=== PATIENT | male | born 2005 | race Caucasian/White ===

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

== ENCOUNTER 2024-03-27 14:18 | Outpatient (AMB) | payer OTHER, SELFPAY ==
--- NOTE | 2024-03-27 14:25 | A.OFFPC_ITS ---
Vital Signs 03/27/24 14:37 Height 5 ft 5.94 in Weight 187 lb 6 oz BMI 30.3 BP 120/78 Blood Pressure Location Lt brachial Position Sitting Respiration 16 Pulse 92 Pulse Source Pulse Oximeter Temp 98.1 F Temp Source Oral Pulse Oximetry (%) 99 Oxygen Delivery Method Room Air Intake Visit Reasons: Establish care Intake Note: New patient visit Family Literacy Coordinator Required: No Allergies cat hair Allergy (Unknown, Uncoded 03/27/24 14:29) unkknown dog epithelium Allergy (Unknown, Uncoded 03/27/24 14:29) Unknown dust mite Allergy (Unknown, Uncoded 03/27/24 14:29) Unknown horse epithelium Allergy (Unknown, Uncoded 03/27/24 14:29) Unknown Medication List - Last Reconciled 03/27/24 by Rudy Perez MD No Known Home Meds Tobacco use date assessed: 03/27/24 Dental Screening Dental Screen Date: 03/27/24 Did you have a dental visit in the last 12 months?: No Did you have a dental problem in the last 6 months where you did not have access to dental care?: No Was dental information given to patient?: Patient has dentist HPI Establish care HPI Details New Patient? ?? Prior PCP:?[facility] Last office visit/CPE:?1 yr ago Acute issue(s):? Was dx'd w/ Anxiety & depression. Mom has ?Bipolar. and GF +Bipolar. Had therapist during Covid pandemic. ?? PMHx:? Anxiety/depression. Asthma and allergies. SurgHx:?None FHx:? Mom: Asthma, Anx/Depression, ?Bipolar. Dad: Anxiety, Depression, Asthma, Gastric ulcer. SocHx:? Nonsmoker - Vaapes, EtOH: Occassional 5-6. MJ daily. No drugs. 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 1. Little interest or pleasure in doing things: several days 2. Feeling down, depressed, or hopeless: several days 3. Trouble falling or staying asleep, or sleeping too much: nearly every day 4. Feeling tired or having little energy: several days 5. Poor appetite or overeating: more than half the days 6. Feeling bad about yourself - or that you are a failure or have let yourself or your family down: more than half the days 7. Trouble concentrating on things, such as reading the newspaper or watching television: several days 8. Moving or speaking so slowly that other people could have noticed. Or the opposite - being so fidgety or restless that you have been moving around a lot more than usual: not at all 9. Thoughts that you would be better off or of hurting yourself in some way: several days Total score: 12 Depression Screening Interpretation: Positive Depression Screening Done: Yes 63892 - PHQ-9 Billing: Yes Source: Developed by Drs. Jeyson Queen, Uzma Mitchell, Howard Ashby and colleagues, with an educational ivania from [employer]. Thrive Questionnaire Date Thrive assessed: 03/27/24 I am a: Patient What is your living situation today?: I have a steady place to live Within the past 12 months, did the food you bought not last and you didn't have the money to get more?: Never true Within the past 12 months, did you worry whether your food would run out before you got money to buy more?: Never true Do you have trouble paying for medicines?: No Do you have trouble getting transportation to medical appointments?: Yes Do you have trouble paying your heating and electricity bill?: No Do you have trouble taking care of your child, family member or friend?: No Do you have trouble with day-to-day activities such as bathing, preparing meals, shopping, managing finances, etc.?: Yes Are you currently unemployed and looking for a job?: No Are you interested in more education?: Yes Please select the resources that you would like help with: Transportation, Daily support and Education Currently or been in a relationship where the following occur: No concerns reported THRIVE Score: 1 AUDIT C Alcohol Use Questionnaire (AUDIT-C) 1. How often do you have a drink containing alcohol?: Monthly or less 2. How many drinks containing alcohol do you have on a typical day when you are drinking?: 5 or 6 3. How often do you have six or more drinks on one occasion?: Never Total Score: 3 JESSICA-7 AMB Questionnaire JESSICA-7 Date JESSICA - 7 assessed: 03/27/24 Feeling nervous, anxious, or on edge: 1 = Several days Not being able to stop or control worryin = More than half the days Worrying too much about different things: 1 = Several days Trouble relaxin = Several days Being so restless that it is hard to sit still: 1 = Several days Becoming easily annoyed or irritable: 2 = More than half the days Feeling afraid as if something awful might happen: 0 = Not at all Total JESSICA-7 score (0-4 normal; 5-9 mild; 10-14 moderate; 15-21 severe): 8 Source: Developed by Drs. Jeyson Queen, Uzma Mitchell, Howard Ashby and colleagues, with an educational ivania from [employer]. JESSICA-7 Assessment Billing JESSICA-7 Assessment Tool: JESSICA-7 Assessment 93067 Review of Systems Const Denies chills, Denies fatigue, Denies fever(s), Denies headache(s) and Denies weakness ENT Denies dizziness and Denies headache(s) Card Denies chest pain, Denies lightheadedness, Denies dyspnea and Denies other (Palpitations) Resp Denies cough, Denies dyspnea, Denies wheezing and Denies other ( shortness of breath) Musc Denies numbness and Denies tingling Neuro Denies dizziness, Denies headache(s), Denies numbness, Denies tingling, Denies paresthesias and Denies weakness Psych Denies anxiety and Denies depression Endo Denies fatigue Aller/Immun Denies wheezing Physical exam (Primary Care) Vital Signs: Last Vital Signs Temp 98.1 F 03/27/24 14:37 Pulse 92 03/27/24 14:37 Resp 16 03/27/24 14:37 BP 120/78 03/27/24 14:37 Pulse Ox 99 03/27/24 14:37 Oxygen Delivery Method Room Air 03/27/24 14:37 BMI result Body Mass Index 30.3 Tobacco/Smoking Status: Tobacco use Status Tobacco use date assessed 03/27/24 03/27/24 14:36 Patient Tobacco Use Status Never used Tobacco 03/27/24 14:36 e-Cigarette/Vaping Use Currently Using 03/27/24 14:36 PHQ-9: PHQ-9 Score PHQ-9: Total score 12 03/27/24 14:54 Depression Screening Interpretation: Positive Thrive Assessment: Date of Thrive Assessment Date Thrive assessed 03/27/24 03/27/24 14:43 Currently or been in a relationship where the following occur: No concerns reported Const General: no acute distress and well developed Nutritional Appearance: well nourished Orientation/consciousness: patient oriented x3 HENMT Head: Yes normocephalic and Yes atraumatic Eyes General: appearance normal, both eyes and all related structures Pupils: Equal, round and reactive pupils present EOM: EOMs intact bilaterally Resp Other: Scattered, faint wheezes Effort & Inspection: normal respiratory effort Auscultation: clear to auscultation bilaterally Cardio Rate: regular rate Rhythm: regular rhythm Heart sounds: S1 normal heart sound present, S2 normal heart sound present, no gallops, no murmurs and no rubs Neuro General: patient oriented x3 and gait normal Cranial nerves: Yes Equal, round and reactive pupils present Psych Affect: normal affect Assessment and Plan Assessment & Plan (1) Depression with anxiety: Code(s): F41.8 - Other specified anxiety disorders Plan: History?of?anxiety?and?depression. Screening?for?anxiety?depression?is?elevated. Patient?says?that?he?is?actually?doing?fairly?well?and?better?t ly?he?usually?does. Declines?referral?to?a?therapist?at?this?time Declines?medications?at?this?time I?did?let?him?know?that?if?he?would?like?to?initiate?therapy?or?discuss?medicati ons?at?any?time?he?can?let?me?know. (2) Mild persistent asthma without complication: Code(s): J45.30 - Mild persistent asthma, uncomplicated Plan: Continue?inhaled?medications Encouraged?him?to?discontinue?marijuana?use?or?switch?to?alternate?route?of?juan a moreno (3) Seasonal allergic rhinitis due to pollen: Code(s): J30.1 - Allergic rhinitis due to pollen Plan: Can?continue?allergy?medications (4) Sleep apnea: Code(s): G47.30 - Sleep apnea, unspecified Plan: Patient?says?he?has?been?told?by?his?father?that?he?has?had?apneic?events Referred?to?Sleep?Medicine (5) Laboratory exam ordered as part of routine general medical examination: Code(s): Z00.00 - Encounter for general adult medical examination without abnormal findings Plan: Check?lab Orders: Orders Comprehensive [place]. Panel Fast Today Z00.00 - Encounter for general adult medical examination without abnormal findings Lipid Panel Today Z00.00 - Encounter for general adult medical examination without abnormal findings TSH reflex Free T4 Today Z00.00 - Encounter for general adult medical examination without abnormal findings Free T4 (Free Thyroxine) Today E03.9 - Hypothyroidism, unspecified Hepatitis B,C Profile Today Z11.3 - Encounter for screening for infections with a predominantly sexual mode of transmission Syphilis Screen Today Z11.3 - Encounter for screening for infections with a predominantly sexual mode of transmission Microalbumin, Random (w Creat) Today I10 - Essential (primary) hypertension UA and rflx microscopic Today Z00.00 - Encounter for general adult medical examination without abnormal findings HIV Ab/Ag Today Z11.3 - Encounter for screening for infections with a predominantly sexual mode of transmission Referrals Sleep Medicine Referral G47.30 - Sleep apnea, unspecified Medications: New albuterol sulfate 90 mcg/actuation (Ventolin HFA) 2 puffs inhalation Q4-6H 30 days PRN 8.5 grams 4RF shortness of breath or wheezing beclomethasone dipropionate 80 mcg/actuation (Qvar RediHaler) 1 inh inhalation Q12H 30 days 10.6 grams 2RF Coding Level of Care Code New Pt Level 3 (38044) Diagnoses Depression with anxiety F41.8 Mild persistent asthma without complication J45.30 Seasonal allergic rhinitis due to pollen J30.1 Sleep apnea G47.30 Laboratory exam ordered as part of routine general medical examination Z00.00 Additional Codes JESSICA-7 Assessment Billing - JESSICA-7 Assessment Tool: JESSICA-7 Assessment 10921 ([id number])
[2024-03-27 14:37] VITALS: BP 120/78; PULSE 92; RESP 16; TEMP 36.7; O2SAT 99; BMI 30.3
== END 2024-03-27 15:18 | disposition home or self-care (01) ==
PROVIDERS: PCP Pediatrics; Visit Provider Family Medicine
DX: F41.8 Other specified anxiety disorders (principal); J45.30 Mild persistent asthma, uncomplicated; J30.1 Allergic rhinitis due to pollen; G47.30 Sleep apnea, unspecified; Z00.00 Encounter for general adult medical examination without abnormal findings
CPT/HCPCS: 96127; 99203

== ENCOUNTER 2025-04-16 11:48 | Outpatient (AMB) | payer OTHER, SELFPAY ==
--- NOTE | 2025-04-16 12:29 | A.OFFPC_ITS ---
Vital Signs 04/16/25 12:34 Height 5 ft 8 in Weight 231 lb BMI 35.1 BP 122/86 Blood Pressure Location Rt brachial Position Sitting Respiration 15 Pulse 89 Pulse Source Pulse Oximeter Temp 97.4 F Temp Source Temporal Artery Scan Pulse Oximetry (%) 97 Oxygen Delivery Method Room Air Intake Visit Reasons: f/u asthma Intake Note: Rashard presents in the office today for a follow up to his asthma. Allergies cat hair Allergy (Unknown, Uncoded 04/16/25 12:31) unkknown dog epithelium Allergy (Unknown, Uncoded 04/16/25 12:31) Unknown dust mite Allergy (Unknown, Uncoded 04/16/25 12:31) Unknown horse epithelium Allergy (Unknown, Uncoded 04/16/25 12:31) Unknown Tobacco use date assessed: 04/16/25 Dental Screening Dental Screen Date: 04/16/25 Did you have a dental visit in the last 12 months?: No Did you have a dental problem in the last 6 months where you did not have access to dental care?: No Was dental information given to patient?: Patient declined HPI f/u asthma HPI Details 19 y/o male presents today with complain ts of asthma. He is on Ventolin. Does vape socially. Pt reports symptoms of sleep apnea. They note witnessed apneic events while sleeping and snoring. Also notes hypersomnia. [facility] Medical History (Updated 03/27/24 @ 15:06 by Rudy Perez MD) Mild persistent asthma without complication Seasonal allergic rhinitis due to pollen Depression Anxiety Family History (Updated 04/16/25 @ 12:33 by Nataliia Lindsey CMA) Father FH: mental illness Depression with anxiety Substance abuse Alcoholism Mother Depression with anxiety Paternal Grandfather Substance abuse Alcoholism Maternal Grandfather Substance abuse Alcoholism Social History (Updated 04/16/25 @ 12:34 by Nataliia Lindsey CMA) Housing: House Alcohol intake: current Patient Tobacco Use Status: Never used Tobacco e-Cigarette/Vaping Use: Currently Using Second Hand Smoke Exposure: No Substance Use Type: Marijuana service: No Current occupational status: employed 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 1. Little interest or pleasure in doing things: several days 2. Feeling down, depressed, or hopeless: several days 3. Trouble falling or staying asleep, or sleeping too much: several days 4. Feeling tired or having little energy: several days 5. Poor appetite or overeating: several days 6. Feeling bad about yourself - or that you are a failure or have let yourself or your family down: several days 7. Trouble concentrating on things, such as reading the newspaper or watching television: several days 8. Moving or speaking so slowly that other people could have noticed. Or the o pposite - being so fidgety or restless that you have been moving around a lot more than usual: several days 9. Thoughts that you would be better off or of hurting yourself in some way: not at all Total score: 8 Source: Developed by Drs. Jeyson Queen, Uzma Mitchell, Howard Ashby and colleagues, with an educational ivania from [email or web address] Thrive Questionnaire Date Thrive assessed: 04/13/25 I am a: Patient What is your living situation today?: I have a place to live, but I am worried about losing it in the future Within the past 12 months, did the food you bought not last and you didn't have the money to get more?: Sometimes True Within the past 12 months, did you worry whether your food would run out before you got money to buy more?: Sometimes True Do you have trouble paying for medicines?: Yes Do you have trouble getting transportation to medical appointments?: No Do you have trouble paying your heating and electricity bill?: No Do you have trouble taking care of your child, family member or friend?: I choose not to answer this question Do you have trouble with day-to-day activities such as bathing, preparing meals, shopping, managing finances, etc.?: No Are you currently unemployed and looking for a job?: Yes Are you interested in more education?: Yes Currently or been in a relationship where the following occur: No concerns reported THRIVE Score: 3 JESSICA-7 AMB Questionnaire JESSICA-7 Date JESSICA - 7 assessed: 03/27/24 Source: Developed by Drs. Jeyson Queen, Uzma Mitchell, Howard Ashby and colleagues, with an educational ivania from [email or web address] Review of Systems Const Denies chills, Denies fatigue, Denies fever(s), Denies headache(s) and Denies weakness ENT Denies dizziness and Denies headache(s) Card Denies dyspnea Resp Denies cough, Denies dyspnea, Denies wheezing and Denies other (shortness of breath) Musc Denies numbness and Denies tingling Neuro Denies dizziness, Denies headache(s), Denies numbness, Denies tingling and Denies weakness Psych Denies anxiety and Denies depression Endo Denies fatigue Aller/Immun Denies wheezing Physical exam (Primary Care) Vital Signs: Last Vital Signs Temp 97.4 F 04/16/25 12:34 Pulse 89 04/16/25 12:34 Resp 15 04/16/25 12:34 BP 122/86 04/16/25 12:34 Pulse Ox 97 04/16/25 12:34 Oxygen Delivery Method Room Air 04/16/25 12:34 BMI result Body Mass Index 35.1 Tobacco/Smoking Status: Tobacco use Status Tobacco use date assessed 04/16/25 04/16/25 12:38 Patient Tobacco Use Status Never used Tobacco 04/16/25 12:34 e-Cigarette/Vaping Use Currently Using 04/16/25 12:34 PHQ-9: PHQ-9 Score PHQ-9: Total score 8 04/16/25 13:07 Thrive Assessment: Date of Thrive Assessment Date Thrive assessed 04/13/25 04/16/25 12:30 Currently or been in a relationship where the following occur: No concerns reported Const General: well developed; No acute distress Nutritional Appearance: well nourished Orientation/consciousness: patient oriented x3 [facility] Head: Yes normocephalic and Yes atraumatic Eyes General: appearance normal, both eyes and all related structures Pupils: Equal, round and reactive pupils present EOM: EOMs intact bilaterally Resp Effort & Inspection: normal respiratory effort Auscultation: clear to auscultation bilaterally Cardio Rate: regular rate Rhythm: regular rhythm Heart sounds: S1 normal heart sound present, S2 normal heart sound present, no gallops, no murmurs and no rubs Neuro General: patient oriented x3 and gait normal Cranial nerves: Yes Equal, round and reactive pupils present Psych Affect: normal affect Coding Level of Care Code Est Pt Level 4 (72760) Diagnoses Mild persistent asthma without complication J45.30 Sleep apnea G47.30 Seasonal allergic rhinitis due to pollen J30.1 Assessment & Plan Assessment & Plan (1) Mild persistent asthma without complication: Code(s): J45.30 - Mild persistent asthma, uncomplicated Category: Medical Plan: Continue albuterol Refilled QVAR Patient still vaping and using MJ intermittently with friends Encouraged only fresh air in his lungs Will continue to monitor (2) Sleep apnea: Code(s): G47.30 - Sleep apnea, unspecified Category: Medical Plan: Family notes snoring and gasping while sleeping also some witnessed apnea and patient has significant daytime sleepiness Referred to Sleep Medicine (3) Seasonal allergic rhinitis due to pollen: Code(s): J30.1 - Allergic rhinitis due to pollen Category: Medical Plan: Can use OTC antihistamine such as Zyrtec Orders: Orders Comprehensive [place]. Panel Fast Today Z00.00 - Encounter for general adult medical examination without abnormal findings Complete Blood Count Auto Diff Today Z00.00 - Encounter for general adult medical examination without abnormal findings UA CC w/rflx Micro + Cult Today Z00.00 - Encounter for general adult medical examination without abnormal findings Lipid Panel Today Z00.00 - Encounter for general adult medical examination without abnormal findings Microalbumin, Random (w Creat) Today I10 - Essential (primary) hypertension TSH reflex Free T4 Today Z00.00 - Encounter for general adult medical examination without abnormal findings Referrals Sleep Medicine Referral G47.30 - Sleep apnea, unspecified Medications: New beclomethasone dipropionate 80 mcg/actuation (Qvar RediHaler) administer with spacer 1 inh inhalation Q12H 10.6 grams 6RF 30 days
[2025-04-16 12:34] VITALS: BP 122/86; PULSE 89; RESP 15; TEMP 36.3; O2SAT 97; BMI 35.1
--- OUTSIDE RECORDS SUMMARY | 2025-04-16 13:10 | XMS_ITS | Encounter Summary ---
Author Organization [facility] Address [address] [place] [address] Phone Care Team Providers Care Traffic Workforce Representative Name Role Phone Kianna Bowen MD Primary Care Provider [phone] Encounter Details Date Type Department Care Team (Late st Contact Info) Description 11/25/2011 Documentation [facility] [place] [address] [place] [address] Family Medicine, Physician [address] [place], [place] [phone] Social History Tobacco Use Types Packs/Day Years Used Date Smoking Tobacco: Never Assessed Sex and Gender Information Value Date Recorded Sex Assigned at Male 05/09/2019 2:56 PM EDT Legal Sex Male 2:51 PM EDT Gender Identity Male 05/09/2019 2:56 PM EDT Sexual Orientation Bisexual 05/09/2019 2: 56 PM EDT documented as of this encounter Plan of Treatment Not on file documented as of this encounter Visit Diagnoses Not on filedocumented in this encounter Care Teams Traffic Workforce Representative Relationship Specialty Start Date End Date Kianna Bowen MD [address] [place] [id number] PCP - General Pediatrics 02/10/24 documented as of this encounter
--- OUTSIDE RECORDS SUMMARY | 2025-04-16 13:10 | XMS_ITS | Encounter Summary ---
Author Organization [facility] Address [address] [place] [address] Phone Care Team Providers Care Athletics Director Name Role Phone iKanna Bowen MD Primary Care Provider [phone] Encounter Details Date Type Department Care Team (Late st Contact Info) Description 12/05/2009 Documentation [facility] [place] Family Medicine [address] [place] [address] Family Medicine, Physician [address] [place], [place] [phone] Social History Tobacco Use Types Packs/Day Years [...] on filedocumented in this encounter Care Teams Athletics Director Relationship Specialty Start Date End Date Kianna Bowen MD [address] [place] [phone] PCP - General Pediatrics 02/10/24 documented as of this encounter
--- OUTSIDE RECORDS SUMMARY | 2025-04-16 13:10 | XMS_ITS | Encounter Summary ---
Author Organization [facility] Address [address] [place] [address] Phone Care Team Providers Care Fifth Grade Teacher Name Role Phone Esthela Mcneil MD Primary Care Provider [phone] Encounter Details Date Type Department Care Team (Late st Contact Info) Description 05/13/2022 Procedure Pass [place] Admitting Dept - Virtual Department [address] [place] [address] Social History Tobacco Use Types Packs/Day Years Used Date Smoking Tobacco: Never Smokeless Tobacco: Never Alcohol Use Standard Drinks/Week Comments Never 0 (1 standard drink = 0.6 oz pur e alcohol) Sex and Gender Information Value Date Recorded Sex Assigned at Not on file Legal Sex Male 8:43 PM EDT Gender Identity Not on file Sexual Orientation Not on file documented as of this encounter Plan of Treatment Not on file documented as of this encounter Visit Diagnoses Not on filedocumented in this encounter Care Teams Fifth Grade Teacher Relationship Specialty Start Date End Date Esthela Mcneil MD [email or web address] PCP - General Pediatrics 05/04/22 documented as of this encounter Additional Source Comments The information contained in this document represents components of the legal health record. It is not the complete legal health record.[facility]
--- OUTSIDE RECORDS SUMMARY | 2025-04-16 13:10 | XMS_ITS | Encounter Summary ---
Author Organization [facility] Address [address] [place] [address] Phone Care Team Providers Care Dead Mail Checker Name Role Phone Kianna Bowen MD Primary Care Provider [phone] Encounter Details Date Type Department Care Team (Late st Contact Info) Description 09/06/2012 Documentation [facility] [place] Family Medicine [address] [place] [address] Family Medicine, Physician [address] [place], [place] [phone] Social History Tobacco Use Types Packs/Day Years [...] on filedocumented in this encounter Care Teams Dead Mail Checker Relationship Specialty Start Date End Date Kianna Bowen MD [address] [place] [id number] PCP - General Pediatrics 02/10/24 documented as of this encounter
--- OUTSIDE RECORDS SUMMARY | 2025-04-16 13:10 | XMS_ITS | Encounter Summary ---
Author Organization [facility] Address [address] [place] [address] Phone Care Team Providers Care Statistics Intern Name Role Phone Kianna Bowen MD Primary Care Provider [phone] Encounter Details Date Type Department Care Team (Late st Contact Info) Description 12/29/2009 Documentation [facility] [place] Family Medicine [address] [place] [address] Family Medicine, Physician [address] [place], [place] [phone] Social History Tobacco Use Types Packs/Day Years [...] on filedocumented in this encounter Care Teams Statistics Intern Relationship Specialty Start Date End Date Kianna Bowen MD [address] [place] [id number] PCP - General Pediatrics 02/10/24 documented as of this encounter
--- OUTSIDE RECORDS SUMMARY | 2025-04-16 13:11 | XMS_ITS | Clinical Summary ---
Author Organization [facility] Address [address] [place] [address] Care Team Providers Care Talent Development Consultant Name Role Phone Esthela Mcneil MD Primary Care Provider [phone] Source Comments Please note that some or all of the patient's information could have additional privacy protections. State laws allow health care providers to render certain types of treatment to minors without parental consent. Please do not assume that this information can be shared solely by obtaining just the consent of the patient's parent/guardian. Please determine if all or part of the patient's care was rendered without parent/guardian involvement. And, if so, obtain the minor's consent prior to disclosure.[facility] Medications No known medications Active Problems No known active problems Family History Medical History Relation Name Comments Ulcers Father Celiac disease Mother Relation Name Status Comments Father Mother Social History Tobacco Use Types Packs/Day Years Used Date Smoking Tobacco: Never Smokeless Tobacco: Never Alcohol Use Standard Drinks/Week Comments Never 0 (1 standard drink = 0.6 oz pur e alcohol) Other Needs Answer Date Recorded Anything else about your child you'd like help w ith? Not on file 04/01/2023 Share good news about positive changes: Not on f ile 04/01/2023 Sex and Gender Information Value Date Recorded Sex Assigned at Not on file Legal Sex Male 8:53 AM EDT Gender Identity Not on file Sexual Orientation Not on file Last Filed Vital Signs Vital Sign Reading Time Taken Comments Blood Pressure 132/81 01/19/2022 1:35 PM EDT Pulse 82 01/19/2022 1:35 PM EDT Temperature - - Respiratory Rate - - Oxygen Saturation - - Inhaled Oxygen Concentration - - Weight 96.8 kg (213 lb 6.5 oz) 01/19/2022 1:35 P M EDT Height 169.5 cm (5' 6.73 ) 01/19/2022 1:35 PM ED T Body Mass Index 33.69 01/19/2022 1:35 PM EDT Plan of Treatment Health Maintenance Due Date Last Done Comments DTaP/TDAP/TD VACCINES (1 - Tdap) 2011 ADOLESCENT HIV SCREENING 2017 COVID-19 Vaccine (1 - 2023-2 5 season) 2025 INFLUENZA (#1) 2025 NIRSEVIMAB VACCINES UNDER 8 MONTHS Aged Out No longer eligible based on patient's age to complete this topic Insurance BLUE [employer]OSS Care Teams Talent Development Consultant Relationship Specialty Start Date End Date Esthela Mcneil MD [address] [place] [address] HIREN HOWARD [id number] PCP - General General Pediatrics 12/01/21
--- OUTSIDE RECORDS SUMMARY | 2025-04-16 13:11 | XMS_ITS | Encounter Summary ---
Author Organization [facility] Address [address] [place] [id number] Phone Care Team Providers Care Data Recovery Planner Name Role Phone Kianna Bowen MD Primary Care Provider [phone] Encounter Details Date Type Department Care Team (Late st Contact Info) Description 05/12/2010 Documentation [facility] Family Medicine [address] [place] [address] Family Medicine, Physician [address] [place], [place] [id number] Social History Tobacco Use Types Packs/Day Years [...] on filedocumented in this encounter Care Teams Data Recovery Planner Relationship Specialty Start Date End Date Kianna Bowen MD [address] [place] [id number] PCP - General Pediatrics 02/10/24 documented as of this encounter
--- OUTSIDE RECORDS SUMMARY | 2025-04-16 13:11 | XMS_ITS | Clinical Summary ---
Author Organization [facility] Address [address] [facility] [address] [place] [phone] Phone Care Team Providers Care Monitor Worker Name Role Phone Esthela Mcneil MD Primary Care Provider [phone] Allergies No known active allergies Medications beclomethasone (QVAR) 40 mcg/actuation inhaler Inhale 2 puffs into the lungs 2 (two) times a day. Active cetirizine (ZYRTEC) 10 MG tablet Take 10 mg by mouth daily. Active acetaminophen (TYLENOL) 500 MG tablet Take 500 mg by mouth every 6 (six) hours as needed for pain (specific location in comments). Active albuterol 90 mcg/actuation inhaler Inhale 2 puffs into the lungs every 6 (six) hours as needed for wheezing. Active Active Problems No known active problems Social History Tobacco Use Types Packs/Day Years Used Date Smoking Tobacco: Never Smokeless Tobacco: Never Alcohol Use Standard Drinks/Week Comments Never 0 (1 standard drink = 0.6 oz pur e alcohol) Education Answer Date Recorded Are you interested in more education? Not on brigido e 11/12/2022 Are you concerned about learning? Not on file 11/12/2022 No 11/12/2022 No 11/12/2022 Digital Access Answer Date Recorded No 12/13/2022 No 12/13/2022 No 12/13/2022 Reliable internet access at home? Not on file 12/13/2022 Device with a working camera? Not on file Sex and Gender Information Value Date Recorded Sex Assigned at Not on file Legal Sex Male 8:43 PM EDT Gender Identity Not on file Sexual Orientation Not on file Last Filed Vital Signs Vital Sign Reading Time Taken Comments Blood Pressure - - Pulse - - Temperature - - Respiratory Rate - - Oxygen Saturation - - Inhaled Oxygen Concentration - - Weight 98.9 kg (218 lb) 05/12/2022 10:00 PM EDT Height - - Body Mass Index - - Plan of Treatment Health Maintenance Due Date Last Done Comments DEVELOPMENTAL/BEHAVIORAL SCREENING (PHQ, PSC, or SWYC) 2007 DEPRESSION SCREENING 2016 SMOKING Hx and SMOKELESS TOBACCO SCREENING 2017 MENINGOCOCCAL VACCINES (B) (1 of 2 - Standard) 2020 ADOLESCENT UNIVERSAL LIPID SCREENING 2021 HEPATITIS C SCREENING 2022 HIV ONE-TIME SCREENING (18-65 YEARS) 2022 COVID-19 VACCINE ( season) 2024 07/17/2021, 11/12/2020, 10/22/2020 COMBINED DTaP,Tdap,Td (7 - Td or Tdap) 03/10/2026 03/10/2016, 08/28/2008, 02/14/2006, Additional history exists HIB VACCINES Completed 09/02/2006, 08/2004, 2004, Additional history exists PNEUMOCOCCAL VACCINES (0-49 years) Aged Out 09/02/2006, 02/16/2005, 2004, Additional history exists No longer eligible based on patient's age to complete this topic MMR VACCINES Completed 08/28/2008, 08/17/2005 VARICELLA VACCINES Completed 08/28/2008, 08/17/2005 HEPATITIS A VACCINES Completed 05/27/2014, 11/21/19 14 HPV VACCINES Completed 03/17/2017, 04/18, 03/10/2016 MENINGOCOCCAL VACCINES (ACWY) Completed 09/09/2020, 05/11/2016 Medical Devices Not on file Insurance [facility] P[facility] INDEM Care Teams Monitor Worker Relationship Specialty Start Date End Date Esthela Mcneil MD [email or web address] Information Development PCP - General Pediatrics 05/04/22 Additional Source Comments The information contained in this document represents components of the legal health record. It is not the complete legal health record.[facility]
--- OUTSIDE RECORDS SUMMARY | 2025-04-16 13:11 | XMS_ITS | Encounter Summary ---
Author Organization [facility] Address [address] [place] [address] Phone Care Team Providers Care Front End Developer Designer Name Role Phone Kianna Bowen MD Primary Care Provider [phone] Reason for Visit * Reason Comments Med Refill Encounter Details Date Type Department Care Team (Late st Contact Info) Description 06/06/2019 Refill [facility] [place] [address] [place] [address] Carlos Alberto Cortez MD [address] [place] [address] Mild persistent asthma without complication Social History Tobacco Use Types Packs/Day Years Used Date Smoking Tobacco: Never Smokeless Tobacco: Never Alcohol Use Standard Drinks/Week Comments No 0 (1 standard drink = 0.6 oz pur e alcohol) Hunger/Food Answer Date Recorded No 08/05/2018 Stable Housing Answer Date Recorded 0 08/05/2018 Transportation Concerns Answer Date Rec orded No 08/05/2018 Hazards in Home Answer Date Recorded No 08/05/2018 Financing Utilities Answer Date Recorde d No 08/05/2018 Safety at Home Answer Date Recorded No 08/05/2018 Outside Support Answer Date Recorded No 08/05/2018 Understanding Health Concerns Answer Da te Recorded No 08/05/2018 Financing Health Concerns Answer Date R ecorded No 08/05/2018 Missing School or Work Answer Date Wayne rded No 08/05/2018 Sex and Gender Information Value Date Recorded Sex Assigned at Male 05/09/2019 2:56 PM EDT Legal Sex Male 2:51 PM EDT Gender Identity Male 05/09/2019 2:56 PM EDT Sexual Orientation Bisexual 05/09/2019 2: 56 PM EDT documented as of this encounter Miscellaneous Notes * Telephone Encounter - Coty Terry LPN - 06/06/2019 10:31 AM EST Refill request for Q-Anish. Last PE 05/09/19/AIDAN documented in this encounter Plan of Treatment Not on file documented as of this encounter Visit Diagnoses Diagnosis Mild persistent asthma without complication documented in this encounter Care Teams Front End Developer Designer Relationship Specialty Start Date End Date Kianna Bowen MD [address] [place] [id number] PCP - General Pediatrics 02/10/24 documented as of this encounter
--- OUTSIDE RECORDS SUMMARY | 2025-04-16 13:11 | XMS_ITS | Clinical Summary ---
Author Organization [facility] Address [address] [place] [address] Phone Care Team Providers Care Precinct Police Sergeant Name Role Phone Kianna Bowen MD Primary Care Provider [phone] Allergies Active Allergy Reactions Criticality Noted Date Comments Cat Dander Dog Epithelium Dust Mite Extract Horse Epithelium Medications ibuprofen 200 MG tablet Take by mouth. 7 Active Cetirizine HCl (ZYRTEC ALLERGY) 10 MG capsuleIndication s:Seasonal allergic rhinitis due to pollen Take 1 capsule by mouth daily. 30 capsule 11 7 Active Albuterol Sulfate (ProAir RespiClick) 108 (90 Base) MCG/ACT aerosol powderIndications :Mild persistent asthma without complication Inhale 2 puffs every 4 (four) hours as needed (cough, wheeze, chest tightness). 1 each 3 Active Lidocaine HCl (Lidocaine Viscous HCl) 2 % solution TAKE 5 ML (MUCOUS MEMBRANE) 3 TIMES PER DAY (PAIN) 4 Active acetaminophen 500 MG tablet Take 500 mg by mouth every 6 hours as needed. Active albuterol HFA 108 (90 Base) MCG/ACT inhalerIndication s:Mild persistent asthma without complication Inhale 2 puffs every 4 (four) hours as needed for wheezing or shortness of breath. 1 Units 4 Active Qvar RediHaler 80 MCG/ACT aerosolIndication s:Mild persistent asthma without complication TAKE 2 PUFFS BY MOUTH TWICE A DAY 10.6 g 1 4 Active Active Problems Problem Noted Date Diagnosed Date COVID-19 04/16/2022 Overview (04/16/2022): New + Marijuana user 11/24/2021 Overview (11/24/2021): 11/2021- Weekly MJ use endorsed at [facility] in setting of mood disturbance. Counseling provided and referred to [facility] team to begin, consider transfer to [facility] program support PRN Assessment & Plan (11/24/2021 10:24 AM EDT): Continue to monitor, educate, support. Anxiety and depression 11/24/2021 Overview (11/24/2021): Rashard with moderate mixed mood disturbance, no current SI or self harm. Open to CBT support- refer to [facility] team ( WHO declined by pt today) Assessment & Plan (08/12/2022 4:45 PM EST): 08/12/22-Rashard reports overall improvement in mood. Trying to break things down into smaller tasks, fewer sad days. Trying to advocate for self and others around him. PLAN: 1. Follow up with [facility] one month 2. Patient goal is to report reduction in discomfort of symptoms from 01/24 to 10/25. 3. Behavioral Recommendations: a. Communicate feelings with parents when things change. b. Continue regular meditation and breathing practice. c. Break down goals into smaller tasks, take things one by one. Assessment & Plan (07/06/2022 3:54 PM EST): 07/06-Rashard reports overall improvement in mood. Trying to break things down into smaller tasks, fewer sad days. Trying to advocate for self and others around him. PLAN: 1. Follow up with [facility] mom to call and schedule. 2. Patient goal is to report reduction in discomfort of symptoms from 710 to 10/25. 3. Behavioral Recommendations: a. Mood tracking daily on a tiara (like [employer]) or chart b. Continue regular meditation and breathing practice. c. Break down driving into smaller tasks Assessment & Plan (06/08/2022 5:51 PM EST): 06/08-Rashard reports some improvement with mood and anxiety symptoms, feeling more energy, taking more steps forward on things he felt stuck with. PLAN: 1. Follow up with [facility] mom to call and schedule. 2. Patient goal is to report reduction in discomfort of symptoms from 01/24 to 10/25. 3. Behavioral Recommendations: a. Mood tracking daily on a tiara (like [employer]) or chart b. Continue regular meditation and breathing practice. c. Break down driving into smaller tasks (ask parents when can drive with them) Assessment & Plan (05/03/2022 5:55 PM EDT): Anxious about surgery with borderline elevated BP today. Suggest 50 mg dose Hydroxyzine prior to surgery- mother to discuss with oral surgeon. Assessment & Plan (04/22/2022 4:42 PM EDT): Patient with symptoms of depression (tiredness, sleeping more, feeling sad) and symptoms of anxiety (feeling nervous when alone, difficulty adjusting to unexpected things, difficulty falling asleep, overwhelmed by multiple things) in the context of family changes and school demands. Will continue to clarify diagnosis as pt. Reports some difficulty verbalizing symptoms. Patient will benefit from CBT strategies to improve mood and reduce anxiety. Patient is ready to address negative mood. Strengths include seems open and interested in change. PLAN: 1. Follow up with [facility] mom to call and schedule. 2. Patient goal is to report reduction in discomfort of symptoms from 01/24 to 10/25. 3. Behavioral Recommendations: a. Mood tracking daily on a tiara (like [employer]) or chart b. Continue regular meditation and breathing practice. c. Break down driving into smaller tasks (ask parents when can drive with them) Assessment & Plan (03/18/2022 4:56 PM EDT): Patient with symptoms of depression (tiredness, sleeping more, feeling sad) and symptoms of anxiety (feeling nervous when alone, difficulty adjusting to unexpected things, difficulty falling asleep, overwhelmed by multiple things) in the context of family changes and school demands. Will continue to clarify diagnosis as pt. Reports some difficulty verbalizing symptoms. Patient will benefit from CBT strategies to improve mood and reduce anxiety. Patient is ready to address negative mood. Strengths include seems open and interested in change. PLAN: 1. Follow up with [facility] one month (based on pt.'s schedule). 2. Patient goal is to report reduction in discomfort of symptoms from 01/24 to 10/25. 3. Behavioral Recommendations: a. Mood tracking daily on a tiara (like [employer]) or chart b. Continue regular meditation and breathing practice. c. Go to gym 1x/week (break down task-select time, ask dad for ride). Assessment & Plan (02/25/2022 10:33 AM EDT): Patient with symptoms of depression (tiredness, sleeping more, feeling sad) and symptoms of anxiety (feeling nervous when alone, difficulty adjusting to unexpected things, difficulty falling asleep, overwhelmed by multiple things) in the context of family changes and school demands. Will continue to clarify diagnosis as pt. Reports some difficulty verbalizing symptoms. Patient will benefit from CBT strategies to improve mood and reduce anxiety. Patient is ready to address negative mood. Strengths include seems open and interested in change. PLAN: 1. Follow up with [facility] pt. Will call, wants mom and dad to attend and needs to check availablity. 2. Patient goal is to report reduction in discomfort of symptoms from 01/24 to 10/25. 3. Behavioral Recommendations: a. Mood tracking daily on a tiara (like [employer]) or chart b. Continue regular meditation and breathing practice. c. Go to gym 1x/week (break down task-select time, ask dad for ride). Assessment & Plan (01/12/2022 10:52 AM EDT): Rashard now established with [facility], s/p 2 visits with monthly follow ups planned. Will explore possibility of more frequent visits, as he continues with moderate symptoms including passive SI, but declines med trial for now. Would prefer to add daily probiotics, MVI, Fish oil, Try to reduce simple carbs and increase plants , increase regular enjoyable physical activity, and add time with friends, volunteer work, etc. F/up in 1-2 months or sooner PRN worsening symptoms. Lower abdominal pain 07/29/2021 Overview (02/17/2022): 07/2021: 6 mos of crampy lower abdominal pain with intermittent NBNM diarrhea, never constipation. Suspect IBS, ? Lactose intolerance as no worrisome signs/sx of fever, blood or weight loss to suggest IBD, but must r/o Celiac- normal TTG/IGA, ESR 24, family requesting GI referral. 01/2022: [facility] GI consult/ Dr Villalobos- suspecting functional abdominal pain, but ordered repeat screening ESR+ and fecal calprotectin, IBGard for prn pain and RTC 04/2022 Assessment & Plan (11/24/2021 10:06 AM EDT): Family prefers re-routing of GI referral to [facility] for further evalution of ongoing IBS symptoms Seasonal allergic rhinitis due to pollen 019 Overview (07/31/2021): Flonase not helpful/well tolerated. RX Nasonex/Mometazone denied by insurance- suggest trial OTC Rhinocort(Budesonide) Assessment & Plan (07/29/2021 9:14 AM EST): Trial Nasonex Assessment & Plan (09/09/2020 2:22 PM EST): Daily cetirizine BMI (body mass index), pediatric, 95-99% for age 0309/26/2012 Overview (07/30/2021): 11/2020: HDL 42L but non-HDL WNL=84 07/2021: BMI 33.4/99%, with Hg A1c=5.7%, normal ALT Assessment & Plan (11/24/2021 10:05 AM EDT): Wonderful recent BMI stabilization with 3 lb wt loss over the past 4 months with improved nutrition. Encouraged continued healthy choices. Assessment & Plan (09/09/2020 2:20 PM EST): Dicussed idet and exercise. Assessment & Plan (03/17/2017 9:38 AM EDT): Discussed diet and excercise. Call if you are interested in the [employer] program for overweight kids. Mild persistent asthma without complication 11/15 Overview (09/15/2020): 04/2019-QVAR 2 puffs Once daily, albuterol only PRN with illnesses. Pro-Air Respiclick preferred by pt insurance. 08/2020: Trial off QVAR attempted with development of chest symptoms - Resumed at 80 x 2 BID Assessment & Plan (05/03/2022 5:53 PM EDT): Well controled with good compliance with daily QVAR. Suggest Flu shot soon. Assessment & Plan (11/24/2021 10:37 AM EDT): Doing well with QVAR 2 puffs daily and taking Cetirizine QHS- refill today. Flu shot and COVID vaccines UTD. AAP and albuterol Med auth form updated. Assessment & Plan (09/09/2020 2:22 PM EST): His asthma has beenvery quiet in the past year. Will do a trial without Qvar to see if he does well. He will call if asthma symptoms become more severe. Assessment & Plan (08/23/2019 8:57 AM EST): URI today, no exacerbation Assessment & Plan (03/17/2017 9:35 AM EDT): He has done very well the past two years with Flovent. Twice a day. 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 If he does well this coming year, consider stopping the Flovent Resolved Problems Problem Noted Date Diagnosed Date Resolved Date Fatigue 08/21/2021 11/24/2021 Overview (08/21/2021): with recent weight gain suggestive of deconditioning, but r/o thryroid disease, Celiac, anemia Sleep disturbance 03/12/2014 09/09/2019 Overview (09/09/2019): H/o melatonin use Nocturnal enuresis 08/18/2011 9 Assessment & Plan (03/17/2017 9:36 AM EDT): Improving, once a week now. Has DDAVP for travel Behavior problem in child 11/25/2009 Overview (05/08/2018): 12/30 - referred to [facility] by [facility]-based therpaist. Assessment & Plan (03/17/2017 9:36 AM EDT): In counseling in past. Father feels he is doing better with some attitude problems Immunizations Immunization Administration Dates Next Due COVID-19 Pfizer, bivalent, 12+ years 08/04/2022 DTaP / Hep B / IPV 02/16/2005,2004, 005 DTaP 5 08/28/2008,02/14/2006 H1N1 07/03/2009,06/04/2009 HPV Vaccine 9 Valent 03/17/2017,05/11/2016,03/10 Hep A, ped/adol 05/27/2014,11/20/2013 Hep B, ped/adol 02/12/2005 Hib (HbOC) 09/02/2006, 5,2004,10/13 IPV 08/28/2008 Influenza Split 07/06/2012,06/08/2011,08/25/2010 Influenza, injectable, quadrivalent 04/22/2015,1 07/21/2013 Influenza, injectable, quadr ivalent, preservative free 08/04/2022,07/17/2021,05/14/2020,05/09,05/08/2018,03/17/2017,03/10/2016 ,07/23/2013 Influenza, injectable, trivalent 009,06/24/2008,05/08/2007,07/08,06/29/2005,05/25/2005 MMR 08/28/2008,08/17/2005 Meningococcal Conj (Menactra) MCV4P 09/09/2020,1 Pneumococcal Conjugate 09/02/2006,2004,2004,10/13 Tdap 03/10/2016 Varicella 08/28/2008,08/17/2005 Family History Medical History Relation Name Comments No Known Problems Father Nathan No Known Problems Mother Paz Relation Name Status Comments Father Nathan Alive Father: Alive a nd well Maternal Grandfather Materna l grandfather: Bipolar disorder Mother Paz Alive Mother: celiac sp seasonal allergies Other Family history of Obesity, No family history of Seizure disorder, Family history of *Heart Disease, No family history of Migraines, Family history of Asthma, No family history of *CVA/Stroke, Family history of Cancer, breast, Family history of *Dental caries, No family history of Developmental dislocation of hip, Family history of Sudden /SD under age 55, Family history of Deafness, No family history of Hyperlipidemia, No family history of ADD/ADHD, Family history of Strabismus/amblyopia, Family history of Diabetes mellitus Social History Tobacco Use Types Packs/Day Years Used Date Smoking Tobacco: Never Smokeless Tobacco: Never Alcohol Use Standard Drinks/Week Comments Not Currently 0 (1 standard drink = 0.6 oz pure alcohol) Has tired on several occassions in the past year Hunger/Food Answer Date Recorded In the last 12 months, did y ou or your family ever eat less than you felt you should because there wasn't enough money for food? No 11/23/2021 Stable Housing Answer Date Recorded Are you worried that in the next 2 months you may not have stable housing? No 11/23/2021 Transportation Concerns Answer Date Rec orded In the last 12 months, have you or your family ever had to go without healthcare because you didn't have a way to get there? No 11/23/2021 Hazards in Home Answer Date Recorded Think about the place you li ve. Do you have problems with any of the following? Pests (mice or roaches), mold, no/not working smoke detectors, water leaks, no window guards. No 2021 Financing Utilities Answer Date Recorde d In the last 12 months, has t he electric, gas, oil, or water company threatened to shut off your services in your home? No 11/23/2021 Safety at Home Answer Date Recorded Are you or your family worried about feeling saf e in your home? No 11/23/2021 Outside Support Answer Date Recorded Do you feel that you need mo re support from other people or programs to help you care for yourself or your family? No 11/23/2021 Understanding Health Concerns Answer Da te Recorded Do you need help understandi ng your or your child's healthcare needs (diagnosis, medications, plan, etc.)? No 11/23/2021 Financing Health Concerns Answer Date R ecorded In the last 12 months, was t here a time when your child needed to see a doctor or get medications or supplies but could not because of cost? No 11/23/2021 Missing School or Work Answer Date Wayne rded Did you or your child miss s chool or work because of a health problem that could have been avoided? No 11/23/2021 Sex and Gender Information Value Date Recorded Sex Assigned at Male 05/09/2019 2:56 PM EDT Legal Sex Male 2:51 PM EDT Gender Identity Male 05/09/2019 2:56 PM EDT Sexual Orientation Bisexual 05/09/2019 2: 56 PM EDT Last Filed Vital Signs Vital Sign Reading Time Taken Comments Blood Pressure 123/86 05/03/2022 5:13 PM EDT Pulse 112 05/03/2022 5:13 PM EDT Temperature 36.5 C (97.7 F) 10/24/2023 3:16 PM EDT Respiratory Rate - - Oxygen Saturation 98% 05/03/2019 10: 21 AM EDT Inhaled Oxygen Concentration - - Weight 83.8 kg (184 lb 12.8 oz) 10/24/2023 3:16 PM EDT Height 168.5 cm (5' 6.34 ) 05/03/2022 5:13 PM ED T Body Mass Index - - Plan of Treatment Health Maintenance Due Date Last Done Comments Men B Vaccine (1 of 2 - Standard) 2020 Influenza Vaccines (#1) 2025 08/04/19 23, 07/17/2021, 05/14/2020, Additional history exists COVID-19 Vaccine (5 - 2024-2 6 season) 2025 08/04/2022, 07/17/2021, 11/12/2020, Additional history exists DTaP,Tdap,and Td Vaccines (7 - Td or Tdap) 03/10/2026 03/10/2016, 08/28/2008, 02/14/2006, Additional history exists Hepatitis B Vaccines Completed 02/16/2005, 02/12/2005, 2004, Additional history exists HIB Vaccines Completed 09/02/2006, 08/2004, 2004, Additional history exists Pneumococcal Vaccine Completed 09/02/2006, 02/16/2005, 2004, Additional history exists IPV Vaccines Completed 08/28/2008, 08/2004, 2004, Additional history exists MMR Vaccines Completed 08/28/2008, 08/17/2005 Varicella Vaccines Completed 08/28/2008, 08/17/2005 Hepatitis A Vaccines Completed 05/27/2014, 11/21/19 14 HPV Vaccines Completed 03/17/2017, 04/18, 03/10/2016 Meningococcal Vaccine Completed 09/09/2020, [facility] Care Teams Precinct Police Sergeant Relationship Specialty Start Date End Date Kianna Bowen MD [address] [place] [phone] PCP - General Pediatrics 02/10/24
--- OUTSIDE RECORDS SUMMARY | 2025-04-16 13:11 | XMS_ITS | Encounter Summary ---
Author Organization [facility] Address [address] [place] [address] Phone Care Team Providers Care Grinder Machine Setter Name Role Phone Kianna Bowen MD Primary Care Provider [phone] Encounter Details Date Type Department Care Team (Late st Contact Info) Description 05/26/2011 Documentation [facility] [place] Family Medicine [address] [place] [address] Family Medicine, Physician [address] [place], [place] [phone] Social History Tobacco Use Types Packs/Day Years [...] on filedocumented in this encounter Care Teams Grinder Machine Setter Relationship Specialty Start Date End Date Kianna Bowen MD [address] [place] [address] PCP - General Pediatrics 02/10/24 documented as of this encounter
--- OUTSIDE RECORDS SUMMARY | 2025-04-16 13:11 | XMS_ITS | Encounter Summary ---
Author Organization [facility] Address [address] [place] [address] Phone Care Team Providers Care Budget Specialist Name Role Phone Kianna Bowen MD Primary Care Provider [phone] Encounter Details Date Type Department Care Team (Late st Contact Info) Description 03/03/2017 Conversion Encounter [facility] [address] [place] [address] Social History Tobacco Use Types Packs/Day Years [...] on filedocumented in this encounter Care Teams Budget Specialist Relationship Specialty Start Date End Date Kianna Bowen MD [address] [place] [address] PCP - General Pediatrics 02/10/24 documented as of this encounter
== END 2025-04-16 13:22 | disposition home or self-care (01) ==
LOC: HO.HMCFM 11:49
PROVIDERS: PCP Family Medicine; Visit Provider Family Medicine
DX: J45.30 Mild persistent asthma, uncomplicated (principal); G47.30 Sleep apnea, unspecified; J30.1 Allergic rhinitis due to pollen

== ENCOUNTER → 2025-04-16 11:48 | Outpatient (BNVA) | payer OTHER, SELFPAY | PROVIDERS: PCP Family Medicine; Visit Provider Family Medicine | DX: J45.30 Mild persistent asthma, uncomplicated (principal); G47.30 Sleep apnea, unspecified; J30.1 Allergic rhinitis due to pollen; Z79.899 Other long term (current) drug therapy | CPT/HCPCS: 99212 ==

== ENCOUNTER 2025-05-14 08:15 | Outpatient (REF) | payer OTHER, SELFPAY ==
--- OUTSIDE RECORDS SUMMARY | 2025-05-14 08:45 | XMS_ITS | Encounter Summary ---
Author Organization [facility] Address [address] [place] [address] Phone Care Team Providers Care Domestic Maid Name Role Phone Kianna Bowen MD Primary Care Provider [phone] Encounter Details Date Type Department Care Team (Late st Contact Info) Description 11/25/2011 Documentation [facility] [place] [address] [place] [address] Family Medicine, Physician [address] [place], [place] [phone] Social History Tobacco Use Types Packs/Day Years [...] on filedocumented in this encounter Care Teams Domestic Maid Relationship Specialty Start Date End Date Kianna Bowen MD [address] [place] [phone] PCP - General Pediatrics 02/10/24 documented as of this encounter
--- OUTSIDE RECORDS SUMMARY | 2025-05-14 08:45 | XMS_ITS | Encounter Summary ---
Author Organization [facility] Address [address] [place] [address] Phone Care Team Providers Care Line Assembler Aircraft Name Role Phone Kianna Bowen MD Primary Care Provider [phone] Encounter Details Date Type Department Care Team (Late st Contact Info) Description 12/05/2009 Documentation [facility] [place] Family Medicine [address] [place] [address] Family Medicine, Physician [address] [place], [place] [phone] Social History Tobacco Use Types Packs/Day Years [...] on filedocumented in this encounter Care Teams Line Assembler Aircraft Relationship Specialty Start Date End Date Kianna Bowen MD [address] [place] [address] PCP - General Pediatrics 02/10/24 documented as of this encounter
--- OUTSIDE RECORDS SUMMARY | 2025-05-14 08:46 | XMS_ITS | Encounter Summary ---
Author Organization [facility] Address [address] [place] [address] Phone Care Team Providers Care Valve Inspector Name Role Phone Kianna Bowen MD Primary Care Provider [phone] Encounter Details Date Type Department Care Team (Late st Contact Info) Description 05/12/2010 Documentation [facility] [place] [address] [place] [address] Family Medicine, Physician [address] [place], [place] [phone] Social History Tobacco Use Types Packs/Day Years [...] on filedocumented in this encounter Care Teams Valve Inspector Relationship Specialty Start Date End Date Kianna Bowen MD [address] [place] [phone] PCP - General Pediatrics 02/10/24 documented as of this encounter
--- OUTSIDE RECORDS SUMMARY | 2025-05-14 08:46 | XMS_ITS | Encounter Summary ---
Author Organization [facility] Address [address] [place] [address] Phone Care Team Providers Care Agriscience Technology Instructor Name Role Phone Kianna Bowen MD Primary Care Provider [phone] Encounter Details Date Type Department Care Team (Late st Contact Info) Description 09/06/2012 Documentation [facility] [place] Family Medicine [address] [place] [address] Family Medicine, Physician [address] [place], [place] [phone] Social History Tobacco Use Types Packs/Day Years [...] on filedocumented in this encounter Care Teams Agriscience Technology Instructor Relationship Specialty Start Date End Date Kianna Bowen MD [address] [place] [address] PCP - General Pediatrics 02/10/24 documented as of this encounter
--- OUTSIDE RECORDS SUMMARY | 2025-05-14 08:46 | XMS_ITS | Clinical Summary ---
Author Organization [facility] Address [address] [place] [address] Care Team Providers Care Lab Specialist Name Role Phone Esthela Mcneil MD Primary Care Provider [phone] Source Comments Please note that some or [...] so, obtain the minor's consent prior to disclosure.[facility] Medications No known medications Active Problems [...] this topic Insurance [employer]UE [employer] Care Teams Lab Specialist Relationship Specialty Start Date End Date Esthela Mcneil MD [address] [place] [address] HIREN HOWARD [id number] PCP - General General Pediatrics 12/01/21
--- OUTSIDE RECORDS SUMMARY | 2025-05-14 08:46 | XMS_ITS | Encounter Summary ---
Author Organization [facility] Address [address] [place] [address] Phone Care Team Providers Care Inventory Control/Shipping Receiving Name Role Phone Kianna Bowen MD Primary Care Provider [phone] Encounter Details Date Type Department Care Team (Late st Contact Info) Description 12/29/2009 Documentation [facility] [place] [address] [place] [address] Family Medicine, Physician [address] [place], [place] [phone] Social History Tobacco Use Types Packs/Day Years [...] on filedocumented in this encounter Care Teams Inventory Control/Shipping Receiving Relationship Specialty Start Date End Date Kianna Bowen MD [address] [place] [phone] PCP - General Pediatrics 02/10/24 documented as of this encounter
--- OUTSIDE RECORDS SUMMARY | 2025-05-14 08:46 | XMS_ITS | Encounter Summary ---
Author Organization [facility] Address [address] [place] [address] Phone Care Team Providers Care Reporting Coordinator Name Role Phone Kianna Bowen MD Primary Care Provider Reason for Visit * Reason Comments Med Refill Encounter Details Date Type Department Care Team (Late st Contact Info) Description 06/06/2019 Refill [facility] [place] [address] [place] [address] Carlos Alberto Cortez MD 150 [place] [address] Mild persistent asthma without complication Social History [...] complication documented in this encounter Care Teams Reporting Coordinator Relationship Specialty Start Date End Date Kianna Bowen MD [address] [place] [address] PCP - General Pediatrics 02/10/24 documented as of this encounter
--- OUTSIDE RECORDS SUMMARY | 2025-05-14 08:46 | XMS_ITS | Encounter Summary ---
Author Organization [facility] Address [address] [place] [address] Phone Care Team Providers Care Sorter Packer Name Role Phone Esthela Mcneil MD Primary Care Provider [phone] Encounter Details Date Type Department Care Team (Late st Contact Info) Description 05/13/2022 Procedure Pass OR Admitting Dept - Virtual Department 30 [place] [address] Social History Tobacco Use Types Packs/Day Years [...] on filedocumented in this encounter Care Teams Sorter Packer Relationship Specialty Start Date End Date Esthela Mcneil MD [email or web address] PCP - General Pediatrics 05/04/22 documented as of this encounter Additional Source Comments The information contained in this document represents components of the legal health record. It is not the complete legal health record.[facility]
--- OUTSIDE RECORDS SUMMARY | 2025-05-14 08:46 | XMS_ITS | Clinical Summary ---
Author Organization [facility] Address [address] [place] [address] Phone Care Team Providers Care Hand Laster Name Role Phone Esthela Mcneil MD Primary Care Provider [phone] Allergies No known active allergies Medications beclomethasone [...] 2022 HIV ONE-TIME SCREENING (18-65 YEARS) 2022 INFLUENZA VACCINE (#1) 2025 , 05/14/2020, 05/09/2019, Additional history exists COVID-19 VACCINE ( season) 2025 07/17/2021, 11/12/2020, 10/22/2020 COMBINED DTaP,Tdap,Td (7 - [...] 05/11/2016 Medical Devices Not on file Insurance [facility] PPO [facility] PPO [facility] PPO IN[facility] INDEM Care Teams Hand Laster Relationship Specialty Start Date End Date Esthela Mcneil MD [email or web address] PCP - General Pediatrics 05/04/22 Additional Source Comments The information contained in this document represents components of the legal health record. It is not the complete legal health record.[facility]
--- OUTSIDE RECORDS SUMMARY | 2025-05-14 08:46 | XMS_ITS | Encounter Summary ---
Author Organization [facility] Address [address] [place] [address] Phone Care Team Providers Care Physical Design Engineer Name Role Phone Kianna Bowen MD Primary Care Provider [phone] Encounter Details Date Type Department Care Team (Late st Contact Info) Description 03/03/2017 Conversion Encounter [facility] [address] [place] [address] Social History Tobacco Use Types Packs/Day Years [...] on filedocumented in this encounter Care Teams Physical Design Engineer Relationship Specialty Start Date End Date Kianna Bowen MD 150 [place] [address] PCP - General Pediatrics 02/10/24 documented as of this encounter
--- OUTSIDE RECORDS SUMMARY | 2025-05-14 08:47 | XMS_ITS | Clinical Summary ---
Author Organization [facility] Address [address] [place] [address] Phone Care Team Providers Care Seasonal Greenery Bundler Name Role Phone Kianna Bowen MD Primary Care Provider [phone] Allergies Active Allergy Reactions Criticality Noted Date [...] (11/24/2021): 11/2021- Weekly MJ use endorsed at [facility] in setting of mood disturbance. Counseling provided and referred to [facility] team to begin, consider transfer to PC+ program support PRN Assessment & Plan (11/24/2021 10:24 AM EDT): Continue to monitor, educate, support. Anxiety and depression 11/24/2021 Overview (11/24/2021): Rashard with moderate mixed mood disturbance, no current SI or self harm. Open to CBT support- refer to [facility] team ( WHO declined by pt today) Assessment & Plan (08/12/2022 4:45 PM EST): 08/12/22-Rashard reports overall improvement in mood. Trying to break things down into smaller tasks, fewer sad days. Trying to advocate for self and others around him. PLAN: 1. Follow up with [facility] one month 2. Patient goal is to [...] around him. PLAN: 1. Follow up with [facility] mom to call and schedule. 2. Patient goal is to report reduction in discomfort of symptoms from 710 to 10/25. 3. Behavioral Recommendations: a. Mood tracking daily on a tiara (like raksul) or chart b. Continue regular meditation and breathing practice. c. Break down driving into smaller tasks Assessment & Plan (06/08/2022 5:51 PM EST): 06/08-Rashard reports some improvement with mood and anxiety symptoms, feeling more energy, taking more steps forward on things he felt stuck with. PLAN: 1. Follow up with [facility] mom to call and schedule. 2. Patient goal is to report reduction in discomfort of symptoms from 01/24 to 10/25. 3. Behavioral Recommendations: a. Mood tracking daily on a tiara (like [employer]) or chart b. Continue regular meditation and [...] in change. PLAN: 1. Follow up with [facility] mom to call and schedule. 2. Patient [...] in change. PLAN: 1. Follow up with [facility] one month (based on pt.'s schedule). 2. Patient goal is to report reduction in discomfort of symptoms from 01/24 to 10/25. 3. Behavioral Recommendations: a. Mood tracking daily on a tiara (like raksul) or chart b. Continue regular meditation and [...] in change. PLAN: 1. Follow up with [facility] pt. Will call, wants mom and dad to attend and needs to check availablity. 2. Patient goal is to report reduction in discomfort of symptoms from 01/24 to 10/25. 3. Behavioral Recommendations: a. Mood tracking daily on a tiara (like raksul) or chart b. Continue regular meditation and [...] ESR 24, family requesting GI referral. 01/2022: [facility] GI consult/ Dr Villalobos- suspecting functional abdominal pain, but ordered repeat screening ESR+ and fecal calprotectin, IBGard for prn pain and RTC 04/2022 Assessment & Plan (11/24/2021 10:06 AM EDT): Family prefers re-routing of GI referral to [facility] for further evalution of ongoing IBS [...] a day. He will follow up with build manager. If he does well this coming year, [...] 11/25/2009 Overview (05/08/2018): 12/30 - referred to [place] by [facility]-based therpaist. Assessment & Plan (03/17/2017 9:36 AM EDT): In counseling in past. Father feels he is doing better with some attitude problems Encounters Date Type Department Care Team Description 04/18/2025 Telephone [facility] [place] [address] [place] [address] Karen Taylor Flu clinic from Last 3 Months Immunizations Immunization Administration Dates Next Due COVID-19 [...] - Standard) 2020 Influenza Vaccines (#1) 2025 08/04/19, 07/17/2021, 05/14/2020, Additional history exists COVID-19 Vaccine (2024-2 6 season) 2025 08/04/2022, 07/17/2021, 11/12/2020, Additional [...] 03/17/2017, 04/18, 03/10/2016 Meningococcal Vaccine Completed 09/09/2020, 016 Care Teams Seasonal Greenery Bundler Relationship Specialty Start Date End Date Kianna Bowen MD [address] [place] [address] PCP - General Pediatrics 02/10/24
--- OUTSIDE RECORDS SUMMARY | 2025-05-14 08:47 | XMS_ITS | Encounter Summary ---
Author Organization [facility] Address [address] [place] [address] Phone Care Team Providers Care Bank Credit Card Collection Clerk Name Role Phone Kianna Bowen MD Primary Care Provider [phone] Encounter Details Date Type Department Care Team (Late st Contact Info) Description 05/26/2011 Documentation [facility] [place] Family Medicine [address] [place] [address] Family Medicine, Physician [address] [place], [place] [id number] Social History Tobacco Use Types Packs/Day Years [...] on filedocumented in this encounter Care Teams Bank Credit Card Collection Clerk Relationship Specialty Start Date End Date Kianna Bowen MD [address] [place] [address] PCP - General Pediatrics 02/10/24 documented as of this encounter
[2025-05-14 11:12] LABS: Appearance Urine Clear; Glucose Urine UA Negative (Negative); PH 6.0 (5.0-9.0); Specific Gravity - Urine 1.025 (1.005-1.025); UMIC TRIGGER UACC YES
[2025-05-14 11:27] LABS: MANUAL DIFF FLAG NO
[2025-05-14 11:35] LABS: Hematocrit 46.0 % (42.0-52.0); Hemoglobin 15.3 g/dl (14.0-18.0); Imm Gran Abs Auto 0.04 X10*3/uL (0.00-0.03); Imm Gran Pct Auto 0.3 % (0.0-0.4); Lymphocytes Absolute Auto 3.5 X10*3/uL (1.2-4.9); Mean Corpuscular HGB Conc 33.3 g/dl (31.0-36.0); Mean Corpuscular Hemoglobin 30.0 pg (27.0-33.0); Mean Corpuscular Volume 90.2 fL (80.0-98.0); NRBC Abs Auto 0.000 X10*3/uL (0.0-0.012); NRBC Pct Auto 0.0 /100WBC (0.0-0.2); Platelet Count 400 X10*3/uL (160-400); Red Blood Count 5.10 X10*6/uL (4.60-5.80); White Blood Count 11.7 X10*3/uL (4.8-10.8)
[2025-05-14 11:59] LABS: Alanine Aminotransferase 35 U/L (0-40); Albumin Level 4.5 g/dL (3.5-5.0); Alkaline Phosphatase 152 U/L (39-117); Anion Gap 11 (12-20); Aspartate Amino Transferase 29 U/L (5-37); Blood Urea Nitrogen 11 mg/dL (9-16); Calcium 9.4 mg/dL (8.4-10.2); Carbon Dioxide 27 mmol/L (22-29); Chloride 106 mmol/L (96-108); Cholesterol 141 mg/dL (<200); Estimated Glomerular Filt Rate > 60; HDL Cholesterol 27 mg/dL (>40); Potassium 3.5 mmol/L (3.3-5.1); Sodium 140 mmol/L (135-145); Total Protein 7.8 g/dL (6.5-8.0); Triglycerides 150 mg/dL (<150)
[2025-05-14 12:13] LABS: Microalbum/Creatinine Ratio Ur 7.3 ug/mg cr (<30)
== END 2025-05-14 08:16 | disposition home or self-care (01) ==
LOC: HO.WFDLDS 08:15
PROVIDERS: Visit Provider Family Medicine
DX: Z00.00 Encounter for general adult medical examination without abnormal findings (principal); I10 Essential (primary) hypertension
CPT/HCPCS: 36415; 80053; 80061; 81001; 82043; 82570; 84443; 85025

== ENCOUNTER 2025-05-24 14:18 | Outpatient (AMB) | payer OTHER, SELFPAY ==
--- NOTE | 2025-05-24 14:14 | A.OFFPC_ITS ---
Intake Visit Reasons: f/u labs Intake Note: patient is scheduled for lab review labs have been completed Plant Mechanic Required: No Allergies cat hair Allergy (Unknown, Uncoded 04/16/25 12:31) unkknown dog epithelium Allergy (Unknown, Uncoded 04/16/25 12:31) Unknown dust mite Allergy (Unknown, Uncoded 04/16/25 12:31) Unknown horse epithelium Allergy (Unknown, Uncoded 04/16/25 12:31) Unknown Medication List - Last Reconciled 05/24/25 by Rudy Perez MD albuterol sulfate 90 mcg/actuation (Ventolin HFA) 2 puffs inhalation Q4-6H PRN 30 days budesonide 180 mcg/actuation (Pulmicort Flexhaler) 1 inh inhalation BID 30 days Tobacco use date assessed: 04/16/25 Dental Screening Dental Screen Date: 04/16/25 HPI f/u labs HPI Details Telemedicine encounter to follow-up pre physical labs and review patient's asthma He notes that asthma symptoms are still present Handled fairly well with albuterol but was better controlled with QVAR. He has not been able to get QVAR which is requiring a prior authorization. Reviewed labs with patient: HDL is low Patient had been referred to Sleep Medicine. He has not been contacted yet. [facility] Medical History (Updated 05/24/25 @ 14:57 by Rudy Perez MD) Mild persistent asthma without complication Seasonal allergic rhinitis due to pollen Depression Anxiety Family History (Updated 04/16/25 @ 12:33 by Nataliia Lindsey CMA) Father FH: mental illness Depression with anxiety Substance abuse Alcoholism Mother Depression with anxiety Paternal Grandfather Substance abuse Alcoholism Maternal Grandfather Substance abuse Alcoholism Social History (Updated 04/16/25 @ 12:34 by Nataliia Lindsey CMA) Housing: House Alcohol intake: current Patient Tobacco Use Status: Never used Tobacco e-Cigarette/Vaping Use: Currently Using Second Hand Smoke Exposure: No Substance Use Type: Marijuana service: No Current occupational status: employed Current occupation: [employer] Current occupational exposures/hazards: No Cognitive needs: No Hearing needs: No Vision needs: Yes (glasses) Questionnaire Thrive Questionnaire Date Thrive assessed: 04/13/25 JESSICA-7 AMB Questionnaire JESSICA-7 Date JESSICA - 7 assessed: 03/27/24 Source: Developed by Drs. Jeyson Queen, Uzma Mitchell, Howard Ashby and colleagues, with an educational ivania from [employer]. Review of Systems Const Denies chills, Denies fatigue, Denies fever(s), Denies headache(s) and Denies we akness ENT Denies dizziness and Denies headache(s) Card Denies chest pain, Denies lightheadedness, Denies dyspnea and Denies other (Palpitations) Resp Denies cough, Denies dyspnea, Denies wheezing and Denies other ( shortness of breath) Musc Denies numbness and Denies tingling Neuro Denies dizziness, Denies headache(s), Denies numbness, Denies tingling, Denies paresthesias and Denies weakness Psych Denies anxiety and Denies depression Endo Denies fatigue Aller/Immun Denies wheezing Physical exam (Primary Care) Tobacco/Smoking Status: Tobacco use Status Tobacco use date assessed 04/16/25 05/24/25 14:17 Patient Tobacco Use Status Never used Tobacco 05/24/25 14:17 e-Cigarette/Vaping Use Currently Using 05/24/25 14:17 Thrive Assessment: Date of Thrive Assessment Date Thrive assessed 04/13/25 05/24/25 14:17 Telehealth Telehealth Telehealth Platform: Telephone Location of provider rendering services: practice address Location of patient: address on file Patient Identification confirmed using: Name, : Yes Telehealth method: voice only Patient verbally consented to treatment: Yes Patient verbally consented to billing insurance company: Yes Patient informed of any privacy concerns related to visit: Yes Minutes spent on Phone/Video with Pt.: 8 Coding Level of Care Code Tele Est Pt Level 2 (06414) Diagnoses Mild persistent asthma without complication J45.30 Sleep apnea G47.30 Low HDL (under 40) E78.6 Assessment & Plan Assessment & Plan (1) Mild persistent asthma without complication: Code(s): J45.30 - Mild persistent asthma, uncomplicated Category: Medical Plan: Ongoing mild persistent asthma He is using his albuterol inhaler but has not been able to get QVAR Will try Pulmicort (2) Sleep apnea: Code(s): G47.30 - Sleep apnea, unspecified Category: Medical Plan: Had referred patient to [facility] has reached out but has not been able to contact patient. I gave him phone number for sleep medicine to call them directly. 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
--- OUTSIDE RECORDS SUMMARY | 2025-05-24 16:03 | XMS_ITS | Encounter Summary ---
Author Organization [facility] Address [address] [place] [address] Phone Care Team Providers Care Seafood Technology Specialist Name Role Phone Kianna Bowen MD Primary Care Provider [phone] Encounter Details Date Type Department Care Team (Late st Contact Info) Description 03/03/2017 Conversion Encounter [facility] [address] [place] [address] Social History Tobacco Use Types Packs/Day Years [...] on filedocumented in this encounter Care Teams Seafood Technology Specialist Relationship Specialty Start Date End Date Kianna Bowen MD [address] [place] [address] PCP - General Pediatrics 02/10/24 documented as of this encounter
--- OUTSIDE RECORDS SUMMARY | 2025-05-24 16:03 | XMS_ITS | Encounter Summary ---
Author Organization [facility] Address [address] [place] [address] Phone Care Team Providers Care Supercalender Operator Name Role Phone Kianna Bowen MD Primary Care Provider Encounter Details Date Type Department Care Team (Late st Contact Info) Description 12/05/2009 Documentation [facility] [place] [address] [place] [address] Family Medicine, Physician [address] [place], [place] [phone] Social History Tobacco Use Types Packs/Day Years [...] on filedocumented in this encounter Care Teams Supercalender Operator Relationship Specialty Start Date End Date Kianna Bowen MD [address] [place] [address] PCP - General Pediatrics 02/10/24 documented as of this encounter
--- OUTSIDE RECORDS SUMMARY | 2025-05-24 16:03 | XMS_ITS | Clinical Summary ---
Author Organization [facility] Address [address] [place] [address] Phone Care Team Providers Care Machine Silk Screen Printer Name Role Phone Kianna Bowen MD Primary Care Provider [phone] Allergies Active Allergy Reactions Criticality Noted Date [...] (11/24/2021): 11/2021- Weekly MJ use endorsed at [facility] in setting of mood disturbance. Counseling provided and referred to [facility] team to begin, consider transfer to PC+ program support PRN Assessment & Plan (11/24/2021 10:24 AM EDT): Continue to monitor, educate, support. Anxiety and depression 11/24/2021 Overview (11/24/2021): Rashard with moderate mixed mood disturbance, no current SI or self harm. Open to CBT support- refer to [facility] team ( WHO declined by pt today) Assessment & Plan (08/12/2022 4:45 PM EST): 08/12/22-Rashard reports overall improvement in mood. Trying to break things down into smaller tasks, fewer sad days. Trying to advocate for self and others around him. PLAN: 1. Follow up with [facility] one month 2. Patient goal [...] around him. PLAN: 1. Follow up with [facility] mom to call and schedule. 2. Patient goal is to report reduction in discomfort of symptoms from 710 to 10/25. 3. Behavioral Recommendations: a. Mood tracking daily on a tiara (like [employer]fa) or chart b. Continue regular meditation and breathing practice. c. Break down driving into smaller tasks Assessment & Plan (06/08/2022 5:51 PM EST): 06/08-Rashard reports some improvement with mood and anxiety symptoms, feeling more energy, taking more steps forward on things he felt stuck with. PLAN: 1. Follow up with [facility] mom to call and schedule. 2. Patient goal is to report reduction in discomfort of symptoms from 01/24 to 10/25. 3. Behavioral Recommendations: a. Mood tracking daily on a tiara (like [employer]) or chart b. Continue regular meditation and [...] in change. PLAN: 1. Follow up with [facility] mom to call and schedule. [...] in change. PLAN: 1. Follow up with [facility] one month (based on pt.'s schedule). 2. Patient goal is to report reduction in discomfort of symptoms from 01/24 to 10/25. 3. Behavioral Recommendations: a. Mood tracking daily on a tiara (like Trufa) or chart b. Continue regular meditation and [...] in change. PLAN: 1. Follow up with [facility] pt. Will call, wants mom and dad to attend and needs to check availablity. 2. Patient goal is to report reduction in discomfort of symptoms from 01/24 to 10/25. 3. Behavioral Recommendations: a. Mood tracking daily on a tiara (like Trufa) or chart b. Continue regular meditation and [...] ESR 24, family requesting GI referral. 01/2022: [facility] GI consult/ Dr Villalobos- suspecting functional abdominal pain, but ordered repeat screening ESR+ and fecal calprotectin, IBGard for prn pain and RTC 04/2022 Assessment & Plan (11/24/2021 10:06 AM EDT): Family prefers re-routing of GI referral to [facility] for further evalution of ongoing IBS [...] a day. He will follow up with senior mainframe developer. If he does well this coming year, [...] 12/30 - referred to [place] by [facility]-based therpaist. Assessment & Plan (03/17/2017 9:36 AM EDT): In counseling in past. Father feels he is doing better with some attitude problems Encounters Date Type Department Care Team Description 04/18/2025 Telephone [facility] [place] [address] [place] [address] Karen Taylor Flu clinic from [...] dislocation of hip, Family history of Sudden /[place] under age 55, Family history of Deafness, [...] Meningococcal Vaccine Completed 09/09/2020, 016 Care Teams Machine Silk Screen Printer Relationship Specialty Start Date End Date Kianna Bowen MD [address] [place] [address] PCP - General Pediatrics 02/10/24
--- OUTSIDE RECORDS SUMMARY | 2025-05-24 16:03 | XMS_ITS | Encounter Summary ---
Author Organization [facility] Address [address] [place] [address] Phone Care Team Providers Care Pmp Project Manager Name Role Phone Kianna Bowen MD Primary Care Provider [phone] Encounter Details Date Type Department Care Team (Late st Contact Info) Description 12/29/2009 Documentation [facility] [place] [address] [place] [address] Family Medicine, Physician [address] [place], [place] [phone] Social History Tobacco Use Types Packs/Day Years [...] on filedocumented in this encounter Care Teams Pmp Project Manager Relationship Specialty Start Date End Date Kianna Bowen MD [address] [place] [address] PCP - General Pediatrics 02/10/24 documented as of this encounter
--- OUTSIDE RECORDS SUMMARY | 2025-05-24 16:03 | XMS_ITS | Clinical Summary ---
Author Organization [facility] Address [address] [place] [address] Care Team Providers Care Front Desk Worker Name Role Phone Esthela Mcneil MD Primary Care Provider [phone] Source Comments Please note that some or [...] this topic Insurance [employer] Care Teams Front Desk Worker Relationship Specialty Start Date End Date Esthela Mcneil MD [address] [place] [address] HIREN HOWARD [address] PCP - General General Pediatrics 12/01/21
--- OUTSIDE RECORDS SUMMARY | 2025-05-24 16:03 | XMS_ITS | Encounter Summary ---
Author Organization [facility] Address [address] [place] [address] Phone Care Team Providers Care Mechanical Lead Name Role Phone Kianna Bowen MD Primary Care Provider [phone] Encounter Details Date Type Department Care Team (Late st Contact Info) Description 09/06/2012 Documentation [facility] [place] Family Medicine [address] [place] [address] Family Medicine, Physician [address] [place], [place] [phone] Social History Tobacco Use Types Packs/Day Years [...] on filedocumented in this encounter Care Teams Mechanical Lead Relationship Specialty Start Date End Date Kianna Bowen MD [address] [place] [address] PCP - General Pediatrics 02/10/24 documented as of this encounter
--- OUTSIDE RECORDS SUMMARY | 2025-05-24 16:03 | XMS_ITS | Encounter Summary ---
Author Organization [facility] Address [address] [place] [address] Phone Care Team Providers Care Manager Fraud Name Role Phone Kianna Bowen MD Primary Care Provider [phone] Reason for Visit * Reason Comments Med Refill Encounter Details Date Type Department Care Team (Late st Contact Info) Description 06/06/2019 Refill [facility] [place] [address] [place] [address] Carlos Alberto Cortez MD [address] [place] [address] Mild persistent asthma without complication Social History [...] complication documented in this encounter Care Teams Manager Fraud Relationship Specialty Start Date End Date Kianna Bowen MD [address] [place] [address] PCP - General Pediatrics 02/10/24 documented as of this encounter
--- OUTSIDE RECORDS SUMMARY | 2025-05-24 16:03 | XMS_ITS | Clinical Summary ---
Author Organization [facility] Address [address] [facility] [address] [place] [address] Phone Care Team Providers Care Boilermaker Fitter Name Role Phone Esthela Mcneil MD Primary Care Provider [phone] Allergies No known active allergies Medications beclomethasone [...] 05/11/2016 Medical Devices Not on file [facility] PPO INDEM [facility] PPO INDEM [facility] PPO [facility]DEM [facility] PPO INDEM [facility] PPO INDEM [facility] PPO INDEM [facility] Care Teams Boilermaker Fitter Relationship Specialty Start Date End Date Esthela Mcneil MD [email or web address] PCP - General Pediatrics 05/04/22 Additional Source Comments The information contained in this document represents components of the legal health record. It is not the complete legal health record.[facility]
--- OUTSIDE RECORDS SUMMARY | 2025-05-24 16:03 | XMS_ITS | Encounter Summary ---
Author Organization [facility] Address [address] [place] [address] Phone Care Team Providers Care Jewish Thought Professor Name Role Phone Kianna Bowen MD Primary Care Provider [phone] Encounter Details Date Type Department Care Team (Late st Contact Info) Description 11/25/2011 Documentation [facility] [place] [address] [place] [address] Family Medicine, Physician [address] [place], [place] [id number] Social History Tobacco Use Types Packs/Day Years [...] on filedocumented in this encounter Care Teams Jewish Thought Professor Relationship Specialty Start Date End Date Kianna Bowen MD [address] [place] [address] PCP - General Pediatrics 02/10/24 documented as of this encounter
--- OUTSIDE RECORDS SUMMARY | 2025-05-24 16:03 | XMS_ITS | Encounter Summary ---
Author Organization [facility] Address [address] [place] [address] Phone Care Team Providers Care Chicken Handler Name Role Phone Kianna Bowen MD Primary Care Provider [phone] Encounter Details Date Type Department Care Team (Late st Contact Info) Description 05/12/2010 Documentation [facility] [place] Family Medicine [address] [place] [address] Family Medicine, Physician [address] [place], [place] [id number] Social History Tobacco Use Types Packs/Day Years [...] on filedocumented in this encounter Care Teams Chicken Handler Relationship Specialty Start Date End Date Kianna Bowen MD [address] [place] [address] PCP - General Pediatrics 02/10/24 documented as of this encounter
--- OUTSIDE RECORDS SUMMARY | 2025-05-24 16:03 | XMS_ITS | Encounter Summary ---
Author Organization [facility] Address [address] [place] [address] Phone Care Team Providers Care Bobcat Driver/Labor Name Role Phone Kianna Bowen MD Primary Care Provider [phone] Encounter Details Date Type Department Care Team (Late st Contact Info) Description 05/26/2011 Documentation [facility] [place] [address] [place] [address] Family Medicine, Physician [address] [place], [place] [phone] Social History Tobacco Use Types Packs/Day Years [...] on filedocumented in this encounter Care Teams Bobcat Driver/Labor Relationship Specialty Start Date End Date Kianna Bowen MD [address] [place] [address] PCP - General Pediatrics 02/10/24 documented as of this encounter
--- OUTSIDE RECORDS SUMMARY | 2025-05-24 16:03 | XMS_ITS | Encounter Summary ---
Author Organization [facility] Address [address] [place] [address] Phone Care Team Providers Care Watch Crystal Grinder Name Role Phone Esthela Mcneil MD Primary Care Provider [phone] Encounter Details Date Type Department Care Team (Late st Contact Info) Description 05/13/2022 Procedure Pass OR Admitting Dept - Virtual Department [address] [place] [address] Social History Tobacco Use Types Packs/Day Years [...] on filedocumented in this encounter Care Teams Watch Crystal Grinder Relationship Specialty Start Date End Date Esthela Mcneil MD [email or web address] PCP - General Pediatrics 05/04/22 documented as of this encounter Additional Source Comments The information contained in this document represents components of the legal health record. It is not the complete legal health record.[facility]
== END 2025-05-24 16:47 | disposition home or self-care (01) ==
LOC: HO.HMCFM 14:18
PROVIDERS: PCP Family Medicine; Visit Provider Family Medicine
DX: J45.30 Mild persistent asthma, uncomplicated (principal); G47.30 Sleep apnea, unspecified; E78.6 Lipoprotein deficiency

== ENCOUNTER 2025-06-23 08:25 | Emergency (ER) | payer OTHER, SELFPAY ==
--- NOTE | ~2025-06-23 | XR_ITS ---
CLINICAL HISTORY: sob cough asthma 2 view chest x-ray Comparison: None provided Findings: No consolidation or effusion. Heart size is normal. No acute fracture. IMPRESSION: 1. No acute findings. This document has been electronically signed by: Jean Liang MD on 06/23/2025 09:14:40
--- OUTSIDE RECORDS SUMMARY | 2025-06-23 08:25 | XMS_ITS | Encounter Summary ---
Author Organization [facility] Address [address] [place] [address] Phone Care Team Providers Care Service Tech/Welder Name Role Phone Kianna Bowen MD Primary Care Provider [phone] Reason for Visit * Reason Comments ED Admission Encounter Details Date Type Department Care Team (Late st Contact Info) Description 06/23/2025 8:25 AM EST - Present Emergency [facility] - Patient Ping Social History Tobacco Use Types Packs/Day Years [...] on filedocumented in this encounter Care Teams Service Tech/Welder Relationship Specialty Start Date End Date Kianna Bowen MD [address] [place] [address] PCP - General Pediatrics 02/10/24 documented as of this encounter
[2025-06-23 08:38] VITALS: BP 148/85; PULSE 106; RESP 20; TEMP 36.8; O2SAT 95; BMI 33.3
--- OUTSIDE RECORDS SUMMARY | 2025-06-23 08:59 | XMS_ITS | Clinical Summary ---
Author Organization [facility] Address [address] [facility] [address] [place] [address] Phone Care Team Providers Care Marble Installer Supervisor Name Role Phone Esthela Mcneil MD Primary Care Provider [phone] Allergies No known active allergies Medications beclomethasone [...] 05/11/2016 Medical Devices Not on file [facility] PPO INDEM [facility] PPO INDEM [facility] PPO INDEM [facility] PPO INDEM [facility] PPO INDEM [facility] PPO INDEM [facility] Care Teams Marble Installer Supervisor Relationship Specialty Start Date End Date Esthela Mcneil MD [email or web address] PCP - General Pediatrics 05/04/22 Additional Source Comments The information contained in this document represents components of the legal health record. It is not the complete legal health record.[facility]
--- OUTSIDE RECORDS SUMMARY | 2025-06-23 08:59 | XMS_ITS | Encounter Summary ---
Author Organization [facility] Address [address] [place] [address] Phone Care Team Providers Care Swedish Masseuse Name Role Phone Kianna Bowen MD Primary Care Provider [phone] Encounter Details Date Type Department Care Team (Late st Contact Info) Description 09/06/2012 [place]ation [facility] [place] [address] [place] [address] Family Medicine, Physician [address] [place], [place] [phone] Social History Tobacco Use Types Packs/Day Years [...] on filedocumented in this encounter Care Teams Swedish Masseuse Relationship Specialty Start Date End Date Kianna Bowen MD [address] [place] [address] PCP - General Pediatrics 02/10/24 documented as of this encounter
--- OUTSIDE RECORDS SUMMARY | 2025-06-23 08:59 | XMS_ITS | Encounter Summary ---
Author Organization [facility] Address [address] [place] [address] Phone Care Team Providers Care Political Consultant Name Role Phone Kianna Bowen MD Primary Care Provider [phone] Encounter Details Date Type Department Care Team (Late st Contact Info) Description 05/26/2011 Documentation [facility] [place] Medicine [address] [place] [address] Family Medicine, Physician [address] [place], [place] [phone] Social History Tobacco Use Types Packs/Day Years [...] on filedocumented in this encounter Care Teams Political Consultant Relationship Specialty Start Date End Date Kianna Bowen MD [address] [place] [address] PCP - General Pediatrics 02/10/24 documented as of this encounter
--- OUTSIDE RECORDS SUMMARY | 2025-06-23 08:59 | XMS_ITS | Encounter Summary ---
Author Organization [facility] Address [address] [place] [address] Phone Care Team Providers Care Electronics Design Engineer Name Role Phone Kianna Bowen MD Primary Care Provider [phone] Reason for Visit * Reason Comments Med Refill Encounter Details Date Type Department Care Team (Late st Contact Info) Description 06/06/2019 Refill [facility] [place] [address] [place] [address] Carlos Alberto Cortez MD [address] [place] [address] Mild persistent asthma without complication Social History [...] complication documented in this encounter Care Teams Electronics Design Engineer Relationship Specialty Start Date End Date Kianna Bowen MD [address] [place] [address] PCP - General Pediatrics 02/10/24 documented as of this encounter
--- OUTSIDE RECORDS SUMMARY | 2025-06-23 08:59 | XMS_ITS | Encounter Summary ---
Author Organization [facility] Address [address] [place] [address] Phone Care Team Providers Care Hotel Manager Name Role Phone Kianna Bowen MD Primary Care Provider [phone] Encounter Details Date Type Department Care Team (Late st Contact Info) Description 11/25/2011 Documentation [facility] [place] [address] [place] [address] Family Medicine, Physician [address] [place], [place] [phone] Social History Tobacco Use Types Packs/Day Years [...] on filedocumented in this encounter Care Teams Hotel Manager Relationship Specialty Start Date End Date Kianna Bowen MD [address] [place] [address] PCP - General Pediatrics 02/10/24 documented as of this encounter
--- OUTSIDE RECORDS SUMMARY | 2025-06-23 08:59 | XMS_ITS | Encounter Summary ---
Author Organization [facility] Address [address] [place] [address] Phone Care Team Providers Care Geriatrics Physician Name Role Phone Kianna Bowen MD Primary Care Provider Encounter Details Date Type Department Care Team (Late st Contact Info) Description 12/05/2009 Documentation [facility] [place] [address] [place] [address] Family Medicine, Physician [address] [place], [place] [phone] Social History Tobacco Use Types Packs/Day Years [...] on filedocumented in this encounter Care Teams Geriatrics Physician Relationship Specialty Start Date End Date Kianna Bowen MD [address] [place] [address] PCP - General Pediatrics 02/10/24 documented as of this encounter
--- OUTSIDE RECORDS SUMMARY | 2025-06-23 08:59 | XMS_ITS | Clinical Summary ---
Author Organization [facility] Address [address] [place] [address] Care Team Providers Care Field Evidence Technician Name Role Phone Esthela Mcneil MD Primary Care Provider [phone] Source Comments Please note that some or [...] so, obtain the minor's consent prior to disclosure.[facility] Medications No known medications Active Problems No [...] this topic Insurance BLUE CROSS Care Teams Field Evidence Technician Relationship Specialty Start Date End Date Esthela Mcneil MD [address] [place] [address] HIREN HOWARD [address] PCP - General General Pediatrics 12/01/21
--- OUTSIDE RECORDS SUMMARY | 2025-06-23 08:59 | XMS_ITS | Clinical Summary ---
Author Organization [facility] Address [address] [place] [address] Phone Care Team Providers Care Cloth Shrinking Tester Name Role Phone Kianna Bowen MD Primary Care Provider [phone] Allergies Active Allergy Reactions Criticality Noted Date [...] (11/24/2021): 11/2021- Weekly MJ use endorsed at [facility] in setting of mood disturbance. Counseling provided and referred to [facility] team to begin, consider transfer to PC+ program support PRN Assessment & Plan (11/24/2021 10:24 AM EDT): Continue to monitor, educate, support. Anxiety and depression 11/24/2021 Overview (11/24/2021): Rashard with moderate mixed mood disturbance, no current SI or self harm. Open to CBT support- refer to [facility] team ( WHO declined by pt today) Assessment & Plan (08/12/2022 4:45 PM EST): 08/12/22-Rashard reports overall improvement in mood. Trying to break things down into smaller tasks, fewer sad days. Trying to advocate for self and others around him. PLAN: 1. Follow up with [facility] one month 2. Patient goal is to [...] around him. PLAN: 1. Follow up with [facility] mom to call and schedule. 2. Patient goal is to report reduction in discomfort of symptoms from 710 to 10/25. 3. Behavioral Recommendations: a. Mood tracking daily on a tiara (like [employer]) or chart b. Continue regular meditation and breathing practice. c. Break down driving into smaller tasks Assessment & Plan (06/08/2022 5:51 PM EST): 06/08-Rashard reports some improvement with mood and anxiety symptoms, feeling more energy, taking more steps forward on things he felt stuck with. PLAN: 1. Follow up with [facility] mom to call and schedule. 2. Patient goal is to report reduction in discomfort of symptoms from 01/24 to 10/25. 3. Behavioral Recommendations: a. Mood tracking daily on a tiara (like [employer]) or chart b. Continue regular meditation and [...] in change. PLAN: 1. Follow up with [facility] mom to call and schedule. 2. Patient [...] in change. PLAN: 1. Follow up with [facility] one month (based on pt.'s schedule). 2. Patient goal is to report reduction in discomfort of symptoms from 01/24 to 10/25. 3. Behavioral Recommendations: a. Mood tracking daily on a tiara (like [employer]) or chart b. Continue regular meditation and [...] in change. PLAN: 1. Follow up with [facility] pt. Will call, wants mom and dad to attend and needs to check availablity. 2. Patient goal is to report reduction in discomfort of symptoms from 01/24 to 10/25. 3. Behavioral Recommendations: a. Mood tracking daily on a tiara (like [employer]) or chart b. Continue regular meditation and [...] ESR 24, family requesting GI referral. 01/2022: [facility] GI consult/ Dr Villalobos- suspecting functional abdominal pain, but ordered repeat screening ESR+ and fecal calprotectin, IBGard for prn pain and RTC 04/2022 Assessment & Plan (11/24/2021 10:06 AM EDT): Family prefers re-routing of GI referral to [facility] for further evalution of ongoing IBS [...] a day. He will follow up with floor installer. If he does well this coming year, [...] 12/30 - referred to [place] by [facility]-based therpaist. Assessment & Plan (03/17/2017 9:36 AM EDT): In counseling in past. Father feels he is doing better with some attitude problems Encounters Date Type Department Care Team Description 06/23/2025 8:25 AM EST - Present Emergency [facility] - Patient Ping 04/18/2025 Telephone [facility] [place] [address] [place] [address] [facility] Flu clinic from [...] dislocation of hip, Family history of Sudden /[place] under age 55, Family history of Deafness, [...] Meningococcal Vaccine Completed 09/09/2020, 016 Care Teams Cloth Shrinking Tester Relationship Specialty Start Date End Date Kianna Bowen MD [address] [place] [address] PCP - General Pediatrics 02/10/24
--- OUTSIDE RECORDS SUMMARY | 2025-06-23 08:59 | XMS_ITS | Encounter Summary ---
Author Organization [facility] Address [address] [place] [address] Phone Care Team Providers Care Steward Racetrack Name Role Phone Kianna Bowen MD Primary Care Provider [phone] Encounter Details Date Type Department Care Team (Late st Contact Info) Description 12/29/2009 Documentation [facility] [place] [address] [place] [address] Family Medicine, Physician [address] [place], [place] [phone] Social History Tobacco Use Types Packs/Day Years [...] on filedocumented in this encounter Care Teams Steward Racetrack Relationship Specialty Start Date End Date Kianna Bowen MD [address] [place] [address] PCP - General Pediatrics 02/10/24 documented as of this encounter
--- OUTSIDE RECORDS SUMMARY | 2025-06-23 08:59 | XMS_ITS | Encounter Summary ---
Author Organization [facility] Address [address] [place] [address] Phone Care Team Providers Care Costume Seamstress Name Role Phone Kianna Bowen MD Primary Care Provider [phone] Encounter Details Date Type Department Care Team (Late st Contact Info) Description 03/03/2017 Conversion Encounter [facility] [address] [place] [address] Social History Tobacco Use Types Packs/Day Years [...] on filedocumented in this encounter Care Teams Costume Seamstress Relationship Specialty Start Date End Date Kianna Bowen MD [address] [place] [address] PCP - General Pediatrics 02/10/24 documented as of this encounter
--- OUTSIDE RECORDS SUMMARY | 2025-06-23 08:59 | XMS_ITS | Encounter Summary ---
Author Organization [facility] Address [address] [place] [address] Phone Care Team Providers Care Loft Worker Pile Driving Name Role Phone Kianna Bowen MD Primary Care Provider [phone] Encounter Details Date Type Department Care Team (Late st Contact Info) Description 05/12/2010 Documentation [facility] [place] [address] [place] [address] Family Medicine, Physician [address] [place], [place] [phone] Social History Tobacco Use Types Packs/Day Years [...] on filedocumented in this encounter Care Teams Loft Worker Pile Driving Relationship Specialty Start Date End Date Kianna Bowen MD [address] [place] [address] PCP - General Pediatrics 02/10/24 documented as of this encounter
--- OUTSIDE RECORDS SUMMARY | 2025-06-23 08:59 | XMS_ITS | Encounter Summary ---
Author Organization [facility] Address [address] [place] [address] Phone Care Team Providers Care Loan Officer Assistant Name Role Phone Esthela Mcneil MD Primary Care Provider [phone] Encounter Details Date Type Department Care Team (Late st Contact Info) Description 05/13/2022 Procedure Pass OR Admitting Dept - Virtual Department [address] [place] [address] Social History Tobacco Use Types Packs/Day Years [...] on filedocumented in this encounter Care Teams Loan Officer Assistant Relationship Specialty Start Date End Date Esthela Mcneil MD [email or web address] PCP - General Pediatrics 05/04/22 documented as of this encounter Additional Source Comments The information contained in this document represents components of the legal health record. It is not the complete legal health record.[facility]
[2025-06-23 09:01] LABS: IDNOW Serial# 55D5AD1C; Strep A Nucleic Acid Negative (Negative)
[2025-06-23 09:41] LABS: Resp Syncy Virus RNA Qual PCR NEGATIVE (Negative); SARS COV2 PCR INHOUSE NEGATIVE (Negative)
[2025-06-23 11:13] VITALS: BP 131/83; PULSE 98; RESP 16; TEMP 36.6; O2SAT 96
--- NOTE | 2025-06-23 12:13 | ED.URI ---
HPI - URI/Sore Throat General Chief Complaint: Upper Respiratory Symptoms Stated Complaint: SOB, throat inflamed Time Seen by Provider: 06/23/25 11:04 Source: patient Mode of arrival: ambulatory Limitations: no limitations History of Present Illness ED Provider: HPI Narrative: 19-year-old male presenting with hoarse voice, phlegm production, he smokes marijuana, has a history of asthma using Ventolin. No fevers or chills no nausea or vomiting reported. Related Data Previous Rx's ?Medication ?Instructions ?Recorded albuterol sulfate 90 mcg/actuation 2 puff inhalation Q4-6H PRN 02/04/25 aerosol inhaler (Ventolin HFA) shortness of breath or wheezing 30 days #8.5 grams budesonide 180 mcg/actuation 1 inh inhalation BID 30 days #1 ea 05/24/25 breath activated powder inhaler (Pulmicort Flexhaler) azithromycin 250 mg tablet See Rx Instructions PO .COMPLEX #6 06/23/25 tabs prednisone 20 mg tablet 40 mg (2 x 20 mg) PO DAILY 5 days 06/23/25 #10 tabs Allergies Allergy/AdvReac Type Severity Reaction Status Date / Time cat hair Allergy Unknown unkknown Uncoded 06/23/25 08:41 dog epithelium Allergy Unknown Unknown Uncoded 06/23/25 08:41 dust mite Allergy Unknown Unknown Uncoded 06/23/25 08:41 horse epithelium Allergy Unknown Unknown Uncoded 06/23/25 08:41 Review of Systems Constitutional: Constitutional: Reports as per [facility] Past Medical History Medical History (Updated 06/23/25 @ 12:14 by Rustam Villagran DO) Mild persistent asthma without complication Seasonal allergic rhinitis due to pollen Depression Anxiety Family History Family History (Updated 04/16/25 @ 12:33 by Nataliia Lindsey CMA) Father FH: mental illness Depression with anxiety Substance abuse Alcoholism Mother Depression with anxiety Paternal Grandfather Substance abuse Alcoholism Maternal Grandfather Substance abuse Alcoholism Social History Social History (Updated 04/16/25 @ 12:34 by Nataliia Lindsey CMA) Housing: House Alcohol intake: current Alcohol intake frequency: does not drink Patient Tobacco Use Status: Never used Tobacco Smoked in Last 30 Days: Yes e-Cigarette/Vaping Use: Currently Using Second Hand Smoke Exposure: No Use of substances other than those prescribed or required for medical reasons: Yes Substance Use Type: Marijuana Advance Directives: No Advance Directives Information Provided: Yes Do you have a plan to hurt others: No Plan service: No Current occupational status: employed Current occupation: [employer] Current occupational exposures/hazards: No Cognitive needs: No Hearing needs: No Vision needs: Yes (glasses) Physical Exam Exam: Exam: General: looks age appropriate No evidence for acute otitis media or externa, slightly injected throat with no tonsillar exudates uvula midline Neck: Supple, no LAD, no meningismus CV: RRR, no obvious murmurs appreciated Resp: ? slight expiratory wheezing of the basis rales rhonchi no stridor moving air well Abd: ?Bowel sounds are present, no tenderness no rebound no rigidity MSK: FROM, strength 5/5 all extremities Skin: Warm, dry, intact, Neuro: ?Alert and oriented x3, moving upper and lower extremities symmetrically, no obvious facial asymmetry noted, cranial nerves 2-12 intact Vital Signs: Vital Signs: Last Vital Signs Temp 97.9 F 06/23/25 12:20 Pulse 98 06/23/25 12:20 Resp 16 06/23/25 12:20 BP 131/83 06/23/25 12:20 Pulse Ox 96 06/23/25 12:20 O2 Del Method Room Air 06/23/25 12:20 BMI result Body Mass Index 33.3 Medications Administered Discontinued Medications Generic Name Dose Route Start Last Admin Trade Name Freq PRN Reason Stop Dose Admin Prednisone 60 mg 06/23/25 12:14 06/23/25 12:22 Prednisone 20 Mg Tablet PO 06/23/25 12:15 60 mg ONCE ONE Administration Medical Decision Making Medical Decision Making [facility] Narrative: 12:38 PM 06/23/2025 (Dr. Rustam Villagran): overall well-appearing, because he is a smoker with some wheezing and in his manic we will start him on antibiotics and steroids he has a rescue inhaler available. Chest x-ray viral swabs reassuring, low risk factors for PE and he did not really endorse pleurisy to me but he did mention discomfort with deep breath in triage Differential Diagnosis Differential Diagnoses: The differential diagnosis associated with the presentation includes ( peritonsillar abscess, otitis media, otitis externa, pharyngitis, pneumonia, bronchitis) Admission/Observation Consideration of admission/observation: Escalation of care including admission/observation considered Lab Data Labs: Lab Results 06/23/25 Range/Units 08:44 Influenza Type A (PCR) NEGATIVE (Negative) Influenza Type B (PCR) NEGATIVE (Negative) RSV RNA Qual (PCR) NEGATIVE (Negative) SARS-CoV-2 RNA (RT-PCR) NEGATIVE (Negative) S. pyogenes GrpA BARBARA Negative (Negative) Independent Interpretation I performed an independent interpretation of an: Plain X-Ray ( My independent chest xray interpretation: Lungs: Lungs are clear bilaterally without evidence of focal consolidation, pleural effusion, or pneumothorax. Cardiac silhouette is unremarkable, no obvious mediastinal widening, no obvious bony abnormalities such as fractures. Impression: Normal chest X-) Radiology Impression Discussion of test interpretation with radiology: I have reviewed the radiologist's reading. Discharge Plan Discharge Clinical Impression: Bronchitis, Diffuse wheezing Patient Disposition: Home, Self-Care Instructions: Acute Bronchitis (ED) Additional Instructions: your physical examination revealed some wheezing in the lungs, recommend cessation of marijuana use for now, you can resume when you are feeling better, slightly erythematous throat, with a history of asthma I am going to start you on antibiotics azithromycin, that is sent to the pharmacy and steroids, continue tomorrow 1st dose in the ER, follow up with the PCP any other issues or concerns come back to the ER Prescriptions: New azithromycin 250 mg tablet See Rx Instructions .ROUTE .COMPLEX Qty: 6 0RF Rx Instructions: For 250 mg dose pack: take 500 mg today (day 1), then 250 mg for 4 days (days 2-5) prednisone 20 mg tablet 40 mg PO DAILY 5 Days Qty: 10 0RF No Action albuterol sulfate [Ventolin HFA] 90 mcg/actuation HFA aerosol inhaler 2 puff inhalation Q4-6H PRN (Reason: shortness of breath or wheezing) 30 Days Qty: 8.5 4RF Pulmicort Flexhaler 180 mcg/actuation aerosol powdr breath activated 1 inh inhalation BID 30 Days Qty: 1 4RF Stand Alone Forms: Work/School Release Interventions: ED Discharge Assessment Last Done: 06/23/25 12:20 Discharge Date/Time: 06/23/25 12:24 Print Language: Nicaraguan
[2025-06-23 12:20] VITALS: BP 131/83; PULSE 98; RESP 16; TEMP 36.6; O2SAT 96
== END 2025-06-23 12:24 | disposition home or self-care (01) ==
PROVIDERS: Emergency Provider Emergency Medicine; PCP Family Medicine
DX: J40 Bronchitis, not specified as acute or chronic (principal); R06.2 Wheezing; Z03.818 Encounter for observation for suspected exposure to other biological agents ruled out
CPT/HCPCS: 71046; 87637; 87651; 99283; 99284

== ENCOUNTER → 2025-06-23 08:50 | Outpatient (BNV) | payer OTHER, SELFPAY | PROVIDERS: PCP Family Medicine; Visit Provider Radiology Diagnostic Radiology | DX: J45.909 Unspecified asthma, uncomplicated (principal) | CPT/HCPCS: 71046 ==